=== PATIENT | male | born 1955 | race Caucasian/White ===

== ENCOUNTER 2018-10-16 15:52 | Inpatient (IN) | payer MEDICARE ==
[~2018-10-16 15:52] MED LIST: ISOVUE-370 76%-LOCM 1 ML ONE
[2018-10-16] MEDS ORDERED: methylPREDNISolone Sod Succ/PF 125 MG/2 ML VIAL ONE (16:15)
[2018-10-16 16:16] LABS: #Eosinphils 0.1 thou/uL (0.0-0.7); #Lymphocytes 0.9 thou/uL (1.20-3.40); #Monocytes 0.7 thou/uL (0.11-0.59); #Neutrophils 7.8 thou/uL (1.40-6.50); %Basophils 0.2 % (0.0-1.0); %Eosinophils 1.2 % (0.0-10.0); %Monocytes 6.9 % (0.0-10.0); %Neutrophils 82.7 % (42.0-75.0); Hemoglobin 14.5 g/dL (14.0-18.0); Mean Corpuscular Hemoglobin 30.5 pg (27.0-31.0); Mean Corpuscular Volume 92.6 fL (78.0-98.0); Mean Platelet Volume 8.5 fL (7.4-10.4); Platelet Count 155 thou/uL (130-400); RBC Distribution Width 13.1 % (11.5-14.5); Red Blood Cell (RBC) Count 4.77 mill/uL (4.70-6.10); White Blood Cell (WBC) Count 9.4 thou/uL (4.8-10.8)
--- NOTE | 2018-10-16 16:23 | RAD ---
CHEST ONE VIEW 10/16/18 INDICATION: History of chest pain. COPD. COMPARISON: Prior exam dated 11/27/17. FINDINGS: Stable severe COPD. No consolidation is evident. Stable mild blunting of the lateral costophrenic ang le. No pneumothorax is evident. No acute osseous abnormality is noted. IMPRESSION: Stable severe COPD. No acute cardiopulmonary abnormality. POS: DONNA
[2018-10-16 16:34] LABS: ALT (SGPT) 19 U/L (8-55); AST (SGOT) 18 U/L (5-34); Alkaline Phosphatase 130 U/L (40-150); Anion Gap 13 mmol/L (10-20); BUN (Urea Nitrogen) 13 mg/dL (8.4-25.7); Bilirubin, Total 0.2 mg/dL (0.2-1.2); Calc. Creatinine Clearance 0 mL/min (70-130); Calcium 9.5 mg/dL (7.8-10.44); Carbon Dioxide 24 mmol/L (22-29); Chloride 105 mmol/L (98-107); Estimated GFR-MDRD 85; Globulin 3.1 g/dL (2.4-3.5); Glucose 109 mg/dL (70-105); Magnesium 2.2 mg/dL (1.6-2.6); Potassium 4.5 mmol/L (3.5-5.1); Protein, Total 7.1 g/dL (6.0-8.3); Sodium 137 mmol/L (136-145)
[2018-10-16 16:46] LABS: Analyzer IN Cardio ER; Base Excess (BEa) -0.6 mEq/L (-2.0 to +3.0); CO2 Tension 44.6 mmHg (35.0-45.0); Calcium, Ionized 1.22 mmol/L (1.12-1.30); Hemoglobin (Hb) 14.4 g/dL (14.0-18.0); O2 Tension (PaO2) 84.2 mmHg (> 80.0); Potassium - ABG Lab 4.25 mmol/L (3.70-5.30); pH, Arterial 7.37 (7.35-7.45)
[2018-10-16] MEDS ORDERED: Azithromycin 500 MG VIAL ONE (17:37)
[2018-10-16] MEDS ORDERED: cefTRIAXone\\ROCEPHIN 1 GM VIAL ONE (17:37)
--- NOTE | 2018-10-16 17:49 | CT ---
CTA OF THE THORAX WITH IV CONTRAST AND 3D REFORMATTED IMAGING 10/16/18 COMPARISON: None. FINDINGS: There is severe emphysema. No central or segmental pulmonary embolus is evident. There is some reticulonodular opacities within the left lower lobe on image 111, series 3. There is s ubsegmental volume loss involving both bases adjacent to fat containing Bochdalek hernias. No conflue nt air space opacity, pleural effusion or pneumothorax is evident. There is enlargement of the pulmonary arterial tree. There is aneurysmal dilatation to descending thoracic aorta up to 3.3 cm. There is partial visualization of an infrarenal abdominal aortic aneurysm measuring 6 cm. There is scattered degenerative change. No definite acute osseous abnormality is evident. IMPRESSION: 1. No central or segmental pulmonary embolus. 2. Area of focal reticulonodularity within the anterior lateral segment of the left lower lobe c an be seen with a bronchiolitis. Recommend short term followup in 6 to 8 weeks to document resolution . This can be performed without contrast. 3. Infrarenal abdominal aortic aneurysm measuring 6 cm. Descending thoracic aortic aneurysm oz uring 3.3 cm. Findings were called to Dr. Shaw at 5:26 p.m. on 10/16/18. Vascular surgical followup with a follow up CTA of the abdomen and pelvis is recommended. This was discussed with Dr. Shaw. 4. Severe COPD with enlargement of pulmonary arterial tree likely related to secondary pulmonary arterial hypertension. POS: MARÍA ELENA
[2018-10-16] MEDS ORDERED: Acetaminophen 650 MG Suppository PR PRN (18:04)
[2018-10-16] MEDS ORDERED: Bisacodyl 5 MG TAB PO PRN (18:04)
[2018-10-16] MEDS ORDERED: Acetaminophen 325 MG TAB PO PRN (18:04)
--- NOTE | 2018-10-16 18:37 | HP ---
PRIMARY CARE PROVIDER: Dr. Ricardo Bocanegra. CHIEF COMPLAINT: Shortness of breath. HISTORY OF PRESENT ILLNESS: Mr. Rao is a pleasant 62-year-old gentleman, who was seen at [facility] on October 16, 2018. He is accompanied by his in the emergency room. They report that approximately a year ago, they were seen at another emergency room, and he was told that he has COPD. He reports that he was doing well until a month ago. One month ago, he started having shortness of breath. He reports that the shortness of breath is worse with exertion. He denies orthopnea. He reports diaphoresis, accompanying shortness of breath. He denies any chest pain. He denies any nausea or vomiting. He is unsure if he had any fevers. He also reports cough over the last 3 weeks. The cough is productive of sputum. Sputum was initially whitish, but is now yellow. He reports generalized weakness. REVIEW OF SYSTEMS: All other systems reviewed and found to be negative. PAST MEDICAL HISTORY: Dyslipidemia, hypertension, and COPD. PAST SURGICAL HISTORY: Tonsillectomy. PSYCHIATRIC HISTORY: Bipolar disorder and schizophrenia. SOCIAL HISTORY: The patient smokes one pack of cigarettes a day. He used to smoke more, but has decreased his cigarette use. He reports occasional alcohol use. He denies any recreational drug use. FAMILY HISTORY: Lung cancer in paternal grandfather and myocardial infarction in his father. CODE STATUS: I discussed his code status. He is full code. ALLERGIES: NO KNOWN DRUG ALLERGIES. CURRENT MEDICATIONS: 1. Budesonide inhalation as needed. 2. Pratt carbonate 600 mg 2 times a day. 3. Benazepril 20 mg daily. 4. Nifedipine 30 mg daily. 5. Pravastatin 20 mg at bedtime. 6. Sertraline 75 mg daily. PHYSICAL EXAMINATION: GENERAL: On examination, Mr. Rao is awake and alert, not in acute distress. VITAL SIGNS: Blood pressure is 175/95, pulse 76, respiratory rate 20, and oxygen saturation 96% on 2 L of oxygen. He is afebrile. His room air oxygen saturation was 84%. EYES: No scleral icterus. No conjunctival pallor. ENT: Moist mucosal membranes. No oropharyngeal erythema or exudates. NECK: Supple, nontender. Trachea is midline. RESPIRATORY: Accessory muscles of breathing are active. Chest wall movements are symmetric bilaterally. He has markedly diminished breath sounds at both bases. CARDIOVASCULAR: S1 and S2 are heard, regular. Peripheral pulses palpable. No carotid bruit. No pericardial rub. ABDOMEN: Soft, nontender, bowel sounds heard, no hepatomegaly, no splenomegaly. NEUROLOGIC: Cranial nerves 2 through 12 intact, deep tendon reflexes 2+. MUSCULOSKELETAL: Power is 5/5 in all four extremities. SKIN: No rashes or subcutaneous nodules. LYMPHATIC: No cervical lymphadenopathy. PSYCHIATRIC: Normal mood, normal affect, the patient is oriented to person, place, and time. LABORATORY DATA: Mr. Camargos labs and investigations were reviewed. I reviewed his electrocardiogram, which shows normal sinus rhythm, no ST changes to suggest an acute coronary syndrome. I also reviewed his chest x-ray, which shows hyperinflated lungs, no pulmonary infiltrates. He also had CT angiogram of the chest. The official report is pending. Emergency room physician reports that there is no evidence of pulmonary embolism, but patient has a 6 cm ascending aortic aneurysm. He has an unremarkable CBC, elevated D-dimer of 1.66. Arterial blood gases showing pH 7.37, pCO2 44.6, and PO2 84. Comprehensive metabolic profile is unremarkable. BNP is mildly elevated at 225. Troponin I is normal. ASSESSMENT AND PLAN: Mr. Rao is a pleasant 62-year-old gentleman, who was seen at [facility] on October 16, 2018. His problem list includes: 1. Acute hypoxic respiratory failure: Mr. Rao is presenting with acute hypoxic respiratory failure, most likely secondary to chronic obstructive pulmonary disease exacerbation. He will be admitted to the hospital for further management. 2. Chronic obstructive pulmonary disease exacerbation: The patient will be treated with oxygen, steroids, bronchodilators, and antibiotics. We will follow clinical response. 3. Aortic aneurysm: Emergency room physician has discussed this case with cardiovascular surgeon on-call. Cardiovascular Surgery has been consulted for opinion and help with management. 4. Tobacco abuse: The patient has been counseled regarding tobacco cessation. We will start him on nicotine replacement therapy. 5. Dyslipidemia: Continue statin. 6. Anxiety and bipolar disorder: Continue home medications. 7. Hypertension: Continue benazepril, monitor vital signs, and titrate antihypertensives as needed. Many thanks for allowing me to participate in your patient's care. Please feel free to contact me with any questions or concerns. LEVEL OF RISK: High. LEVEL OF COMPLEXITY: High. Job ID: [id number]
[2018-10-16 20:00] LABS: Troponin I Less than 0.010 ng/mL (< 0.028)
[2018-10-16 21:04] VITALS: BMI 21.4
[2018-10-16] MEDS: Nicotine 21 MG PATCH TD SCH (22:06)
[2018-10-16 23:06] LABS: Troponin I Less than 0.010 ng/mL (< 0.028)
[2018-10-17] MEDS: methylPREDNISolone Sod Succ 40 MG VIAL IVP SCH ×4 (00:22→18:01)
[2018-10-17 06:38] LABS: #Lymphocytes 0.3 thou/uL (1.20-3.40); #Monocytes 0.1 thou/uL (0.11-0.59); #Neutrophils 4.1 thou/uL (1.40-6.50); %Basophils 0.4 % (0.0-1.0); %Eosinophils 0.3 % (0.0-10.0); %Lymphocytes 5.7 % (21.0-51.0); %Monocytes 1.7 % (0.0-10.0); Hemoglobin 14.2 g/dL (14.0-18.0); Mean Corpuscular HGB CONC 30.9 g/dL (32.0-36.0); Mean Corpuscular Hemoglobin 29.8 pg (27.0-31.0); Mean Corpuscular Volume 96.4 fL (78.0-98.0); Mean Platelet Volume 9.3 fL (7.4-10.4); Platelet Count 134 thou/uL (130-400); RBC Distribution Width 13.3 % (11.5-14.5); Red Blood Cell (RBC) Count 4.76 mill/uL (4.70-6.10); White Blood Cell (WBC) Count 4.4 thou/uL (4.8-10.8)
[2018-10-17 06:55] LABS: Anion Gap 13 mmol/L (10-20); BUN (Urea Nitrogen) 13 mg/dL (8.4-25.7); Calc. Creatinine Clearance 94 mL/min (70-130); Calcium 9.8 mg/dL (7.8-10.44); Carbon Dioxide 25 mmol/L (22-29); Chloride 104 mmol/L (98-107); Estimated GFR-MDRD Greater than 90; Glucose 233 mg/dL (70-105); Potassium 4.5 mmol/L (3.5-5.1); Sodium 137 mmol/L (136-145)
--- NOTE | 2018-10-17 08:03 | CT ---
LIMITED CTA THORAX WITH CONTRAST WITH 3D VOLUME RENDERING CTA ABDOMEN AND PELVIS WITH COTNRAST WITH 3D VOLUME RENDERING CTA OF BILATERAL LOWER EXTREMITIES WITH CONTRAST WITH 3D VOLUME RENDERING CTA RUNOFF EXAM INCLUDING BILATERAL LOWER EXTREMITIES: FINDINGS: The imaged mid to distal descending thoracic aorta demonstrates multifocal prominent atherosclerotic disease including calcified plaque with aneurysmal dilatation of 4 cm. There is a large, long-segmen t fusiform infrarenal abdominal aortic aneurysm measuring up to 6 cm in diameter with prominent ather omatous plaque. This spans the region from the level just below the takeoff of the renal arteries to the aortic bifurcation, approximately 12 cm in craniocaudal length. The origin of the celiac axis r eveals mild plaque as does the origin of the superior mesenteric artery. The origin of the left re nal artery demonstrates a mild stenosis due to noncalcified plaque. Mild plaque without significant stenosis is seen involving the right renal artery. Mild disease is seen at the origin of the small-c aliber inferior mesenteric artery. There is aneurysmal dilatation of the right common iliac artery a t 1.9 cm. There is ectasia of the left common iliac artery. Diffuse atherosclerotic calcification t hroughout each iliac artery is present. There are moderately diseased bilateral internal iliac arter ies. Mild scattered calcified plaque is seen within each external iliac artery. RIGHT LOWER EXTREMITY: There is mild atherosclerotic plaque of the right common femoral artery and proximal right superficia l femoral artery. Mild atherosclerotic irregularity is present involving the mid to distal right sup erficial femoral artery. Popliteal artery is patent. There is 3-vessel runoff of the right lower ex tremity to the level of the high ankle. LEFT LOWER EXTREMITY: The left common femoral and proximal left superficial femoral artery demonstrate mild calcified and n oncalcified atherosclerotic plaque. The left SFA is otherwise grossly patent. Mild atherosclerotic disease of the left popliteal artery is present. There is 3-vessel runoff to the level of the left a nkle. Incidental note of pulmonary emphysema. There is a diminutive, devascularized-appearing portion of t he anterior left kidney at the inferior aspect, likely a region of scr. There is a small probable cy st of the lower pole left kidney, although too small to definitively characterize. There is diffuse fecal material throughout the colon with moderate distention indicative of constipation. Scattered o sseous degenerative changes are present. IMPRESSION: 1. Extensive aneurysmal dilatation of the abdominal aorta as discussed above. Mild multifocal bilat eral lower extremity vascular disease is present. 2. Mild aneurysmal dilatation of the descending thoracic aorta. POS: NWK
[2018-10-17] MEDS: Enoxaparin Sodium 40 MG/0.4 ML SYRINGE SC SCH (08:50)
[2018-10-17] MEDS ORDERED: Budesonide 0.5 MG/2 ML NEB NEB SCH (11:30)
--- NOTE | 2018-10-17 12:45 | PDOC.PN ---
- Subjective Encounter Start Date: 10/17/18 Encounter Start Time: 07:40 Pt seen for followup re: acute hypoxic respiratory failure. Says he feels better. - Objective Resuscitation Status - Order Detail: 10/16/18 18:04 Resuscitation Status Routine Resuscitation Status: FULL: Full Resuscitation Discussed with: PATIENT JOAQUÍN Reviewed: Yes Vital Signs & Weight: Vital Signs (12 hours) Temp Pulse Resp BP BP Pulse Ox 10/17/18 11:20 97.5 F L 61 20 159/78 H 94 L 10/17/18 08:50 98 10/17/18 07:20 97.5 F L 52 L 17 136/72 98 10/17/18 07:03 53 L 16 99 10/17/18 04:24 97.4 F L 57 L 20 153/82 H 100 10/17/18 00:48 59 L 14 96 Weight Weight 145 lb 9.6 oz I&O: 10/16/18 10/17/18 10/18/18 05:59 06:59 06:59 Intake Total Output Total Balance Result Diagrams: 10/17/18 05:06 10/17/18 05:06 EKG Reviewed by me: Yes (Tele: NSR) Phys Exam - Physical Examination Constitutional: NAD HEENT: moist MMs, sclera anicteric, oral pharynx no lesions, 2+ tonsils Neck: no nodes, no JVD, supple, full ROM Respiratory: wheezing present Cardiovascular: RRR, no rub S1, S2 Gastrointestinal: soft, non-tender, no distention, positive bowel sounds Neurological: moves all 4 limbs Psychiatric: normal affect Dx/Plan (1) Acute respiratory failure with hypoxia Code(s): J96.01 - ACUTE RESPIRATORY FAILURE WITH HYPOXIA Status: Acute Comment: Improving, secondary to COPD exacerbation (2) COPD exacerbation Code(s): J44.1 - CHRONIC OBSTRUCTIVE PULMONARY DISEASE W (ACUTE) EXACERBATION Status: Acute Comment: Improving with oxygen, steroids, bronchodilators and antibiotics (3) Aortic aneurysm Code(s): I71.9 - AORTIC ANEURYSM OF UNSPECIFIED SITE, WITHOUT RUPTURE Status: Acute Comment: CV surgery consulted (4) Hyperglycemia Code(s): R73.9 - HYPERGLYCEMIA, UNSPECIFIED Status: Acute Comment: check HbA1c level (5) Tobacco abuse Code(s): Z72.0 - TOBACCO USE Status: Chronic Comment: continue nicotine replacement therapy (6) Dyslipidemia Code(s): E78.5 - HYPERLIPIDEMIA, UNSPECIFIED Status: Chronic Comment: continue statin (7) HTN (hypertension) Code(s): I10 - ESSENTIAL (PRIMARY) HYPERTENSION Status: Chronic Comment: monitor vital signs, titrate antihypertensives as needed - Plan * . Review of Systems - Review of Systems Constitutional: negative: fever, chills, sweats, weakness, malaise Respiratory: Cough, SOB with Excertion, Sputum. negative: Dry, Shortness of Breath, Hemoptysis, Pleuritic Pain, Wheezing Cardiovascular: negative: chest pain, palpitations, orthopnea, paroxysmal nocturnal dyspnea, edema, light headedness Gastrointestinal: negative: Nausea, Vomiting, Abdominal Pain, Diarrhea, Constipation, Melena, Hematochezia Genitourinary: negative: Dysuria, Frequency, Incontinence, Hematuria, Retention Skin: negative: Rash, Lesions, Rohit, Bruising - Medications/Allergies Allergies/Adverse Reactions: Allergies Allergy/AdvReac Type Severity Reaction Status Date / Time No Known Drug Allergies Allergy Verified 10/16/18 21:05 Medications: Current Medications Acetaminophen (Tylenol) 650 mg PO Q4H PRN PRN Reason: Headache/Fever/Mild Pain (1-3) Acetaminophen (Tylenol) 650 mg LA Q4H PRN PRN Reason: Headache/Fever/Mild Pain (1-3) Albuterol/Ipratropium (Duoneb) 3 ml NEB [id number] [facility] Last Admin: 10/17/18 07:03 Dose: 3 ml Albuterol/Ipratropium (Duoneb) 3 ml NEB [id number] PRN PRN Reason: SOB &/or Wheezing Bisacodyl (Dulcolax) 10 mg PO DAILYPRN PRN PRN Reason: Constipation Budesonide (Pulmicort Neb Solution) 0.5 mg NEB BID-RT [facility] Enoxaparin Sodium (Lovenox) 40 mg SC 0900 [facility] Last Admin: 10/17/18 08:50 Dose: 40 mg Azithromycin 500 mg/ Sodium (Chloride) 250 mls @ 250 mls/hr IVPB Q24HR [facility] Ceftriaxone Sodium 1 gm/ (Sodium Chloride) 100 mls @ 200 mls/hr IVPB Q24HR [facility] Allardt Carbonate (Allardt Carbonate) 600 mg PO BID [facility] Methylprednisolone Sodium Succinate (Solu-Medrol) 40 mg IVP Q6HR [facility] Last Admin: 10/17/18 11:27 Dose: 40 mg Nicotine (Nicoderm Patch) 21 mg TD Q24HR [facility] Last Admin: 10/16/18 22:06 Dose: Not Given Nifedipine (Procardia Xl) 30 mg PO DAILY LÓPEZ Sertraline HCl (Zoloft) 75 mg PO DAILY LÓPEZ Simvastatin (Zocor) 10 mg PO HS [facility] Sodium Chloride (Flush - Normal Saline) 10 ml IVF Q12HR [facility] Last Admin: 10/17/18 08:50 Dose: 10 ml Sodium Chloride (Flush - Normal Saline) 10 ml IVF PRN PRN PRN Reason: Saline Flush Last Admin: 10/17/18 05:58 Dose: 10 ml
[2018-10-17 15:33] LABS: Hemoglobin A1c 5.2 % (4.0-6.0)
[2018-10-17] MEDS ORDERED: cefTRIAXone\\ROCEPHIN 1 GM in Sodium Chloride 0.9% 100 ML IVPB SCH (17:00)
[2018-10-17] MEDS ORDERED: Azithromycin 500 MG in Sodium Chloride 0.9% 250 ML 250 ML IVPB SCH (18:00)
[2018-10-17] MEDS: Budesonide 0.5 MG/2 ML NEB NEB SCH (19:11)
[2018-10-17] MEDS: Simvastatin 5 MG TAB PO SCH (19:53)
[2018-10-17] MEDS: Lithium Carbonate 150 MG CAP PO SCH (19:53)
[2018-10-17] MEDS: Nicotine 21 MG PATCH TD SCH ×2 (19:53→19:55)
--- NOTE | 2018-10-17 21:58 | CON ---
DATE OF CONSULTATION: 10/17/2018 PRIMARY CARE PHYSICIAN: Dr. Ricardo Bocanegra. CHIEF COMPLAINT: Shortness of breath. HISTORY OF PRESENT ILLNESS: The patient is a 62-year-old smoker who over the last month or two at home has been having problems with what he describes as recurrent bronchitis. He will develop a productive cough and shortness of breath, will clear up on antibiotics, and then will recur soon after completing his course of antibiotics. He has had problems with wheezing associated with this. His current episode has involved cough, productive of whitish sputum for about 3 weeks and his breathing got bad enough that he decided to present to the emergency room. His chest x-ray had obvious COPD without obvious focal infiltrate. A CT scan of the chest was done as part of his evaluation and I was contacted by the emergency room physician, who reported the CT had shown about a 6-cm aortic aneurysm at about the level of the diaphragmatic hiatus. The patient had no abdominal or back pain and no radiographic findings suggestive of hemorrhage or surrounding edema. The patient was admitted to the hospitalist service for treatment of his presumed COPD exacerbation and I was asked to see the patient with regard to the incidental finding of his aneurysm. The patient denies any known history of aneurysm, but has siblings with aneurysms. PAST MEDICAL HISTORY: Significant for what is described as a combination of schizophrenia and bipolar disorder, hypertension, and COPD. MEDICATIONS: 1. Zoloft, an unknown dose. 2. Langlois carbonate 600 mg b.i.d. 3. Nifedipine ER 30 mg a day. 4. Budesonide nebulizer b.i.d. ALLERGIES: THE PATIENT DENIES ANY MEDICAL ALLERGIES. SOCIAL HISTORY: The patient has a long history of heavy smoking as much as 4-5 packs of cigarettes a day over the last year, so he has cut down to about one pack of cigarettes a day, but has started vaping during that time. FAMILY HISTORY: Significant for two siblings with aneurysms. His father had coronary disease. REVIEW OF SYSTEMS: Negative for any eye, speech, facial, or extremity symptoms consistent with TIAs. He has a very remote history of a syncopal episode. He denies any lower extremity symptoms consistent with claudication. He denies any delusions or suicidal ideation, but does admit to some recent depression. PHYSICAL EXAMINATION: GENERAL: He is in no distress, but does have a bit of a rattling sound to his breathing. VITAL SIGNS: He is 5 feet 9 inches, weighs 145.5 pounds, heart rate is 61, blood pressure 159/78, room air O2 saturations are 94% to 98%, temperature is 97.5, and T-max this hospitalization has been 98.2. NECK: He has no JVD. No carotid bruits. He has distant breath sounds with some right-sided wheezes. He has a regular rate and rhythm. ABDOMEN: Soft and nontender. He has palpable radial, femoral, popliteal, dorsalis pedis, and posterior tibial pulses. He has no femoral bruits. Femoral and popliteal pulses are of normal prominence. He has no clubbing, cyanosis, or edema. Level of consciousness and affect appear normal. NEUROLOGIC: Grossly nonfocal. IMAGING: His chest x-ray shows hyperexpanded lung aldana with very prominent vascular and pleural markings and flattened diaphragms or cephalization of the vasculature, no obvious aortic knob calcification or particular ectasia. Cardiac silhouette is normal. His chest CT showed prominent pulmonary vasculature with diffuse emphysematous disease, worse in the upper lobes. The lower cuts of his scan showed prominence to the juxtarenal aorta. Dedicated CTA of his aorta showed about a 6-cm juxtarenal aneurysm. It approaches the superior mesenteric artery. It appears to probably involve the renals. Axial cuts of the AP diameter appears to be about 6 cm. On sagittal, it appears to be about 5.5. Coronal of the transverse, appears to be about 5.5. There is also about a 2-cm dilatation of the right common iliac artery. IMPRESSION AND RECOMMENDATIONS: The patient's lung disease is bad enough that endovascular repair certainly an appealing option, but I am not sure that proximity of the renal vasculature to the aneurysm or for that matter the SMA will easily allow for that. If his cardiopulmonary status was to allow, this is surgically accessible in a fairly routine manner. His body habitus is such that I do not think that a juxtarenal aneurysm repair would be of inordinate difficulty. The 1st order of business is to get him over his current exacerbation of chronic obstructive pulmonary disease and then do a more systematic approach toward evaluating his cardiopulmonary status as well as analysis of the anatomy to evaluate him for candidacy of stent graft repair from a purely technical standpoint. Job ID: [id number]
[2018-10-18] MEDS: methylPREDNISolone Sod Succ 40 MG VIAL IVP SCH ×3 (00:41→12:33)
[2018-10-18 05:54] LABS: #Basophils 0.1 thou/uL (0.0-0.2); #Lymphocytes 0.5 thou/uL (1.20-3.40); #Monocytes 0.4 thou/uL (0.11-0.59); #Neutrophils 10.6 thou/uL (1.40-6.50); %Basophils 0.6 % (0.0-1.0); %Eosinophils 0.1 % (0.0-10.0); %Lymphocytes 4.2 % (21.0-51.0); %Monocytes 3.1 % (0.0-10.0); Hemoglobin 13.3 g/dL (14.0-18.0); Mean Corpuscular HGB CONC 30.5 g/dL (32.0-36.0); Mean Corpuscular Hemoglobin 29.4 pg (27.0-31.0); Mean Corpuscular Volume 96.4 fL (78.0-98.0); Mean Platelet Volume 8.2 fL (7.4-10.4); Platelet Count 165 thou/uL (130-400); RBC Distribution Width 13.3 % (11.5-14.5); Red Blood Cell (RBC) Count 4.54 mill/uL (4.70-6.10); White Blood Cell (WBC) Count 11.5 thou/uL (4.8-10.8)
[2018-10-18 06:17] LABS: Anion Gap 12 mmol/L (10-20); BUN (Urea Nitrogen) 14 mg/dL (8.4-25.7); Calc. Creatinine Clearance 91 mL/min (70-130); Calcium 9.7 mg/dL (7.8-10.44); Carbon Dioxide 26 mmol/L (22-29); Chloride 105 mmol/L (98-107); Estimated GFR-MDRD Greater than 90; Glucose 144 mg/dL (70-105); Potassium 4.4 mmol/L (3.5-5.1); Sodium 139 mmol/L (136-145)
[2018-10-18] MEDS: Budesonide 0.5 MG/2 ML NEB NEB SCH ×2 (06:27→19:00)
[2018-10-18] MEDS: Lithium Carbonate 150 MG CAP PO SCH ×2 (09:22→20:38)
[2018-10-18] MEDS: NIFEdipine XL 30 MG TAB PO SCH (09:23)
[2018-10-18] MEDS: Enoxaparin Sodium 40 MG/0.4 ML SYRINGE SC SCH (09:23)
--- NOTE | 2018-10-18 09:23 | PDOC.PN ---
- Subjective Encounter Start Date: 10/18/18 Encounter Start Time: 11:20 Subjective: Patient reports improved SOB and cough. Ok off O2 while at rest -: currently. Gets very SOB with ambulation. - Objective Resuscitation Status - Order Detail: 10/16/18 18:04 Resuscitation Status Routine Resuscitation Status: FULL: Full Resuscitation Discussed with: PATIENT JOAQUÍN Reviewed: Yes Vital Signs & Weight: Vital Signs (12 hours) Temp Pulse Resp BP BP Pulse Ox 10/18/18 07:32 98.0 F 78 18 127/72 93 L 10/18/18 06:28 97 10/18/18 06:27 76 18 97 10/18/18 05:00 97.5 F L 65 20 138/67 96 10/18/18 00:34 78 16 98 Weight Weight 145 lb 9.6 oz I&O: 10/17/18 10/18/18 10/19/18 06:59 06:59 06:59 Intake Total 1950 Output Total 2350 Balance -400 Result Diagrams: 10/18/18 05:31 10/18/18 05:31 Phys Exam - Physical Examination Constitutional: NAD HEENT: moist MMs Respiratory: no wheezing, no rales, no rhonchi mild decreased air movement, no increase WOB currently Cardiovascular: RRR, no significant murmur Gastrointestinal: soft Musculoskeletal: no edema Neurological: non-focal, moves all 4 limbs very shakey, states he was worse at home, especially since he was drinking tons of caffeine. No hx of heavy or regular EtOH use. Does smoke alot. Psychiatric: A&O x 3 Deviation from normal: a bit anxious Dx/Plan (1) Acute respiratory failure with hypoxia Code(s): J96.01 - ACUTE RESPIRATORY FAILURE WITH HYPOXIA Status: Acute Comment: Improving, secondary to COPD exacerbation, on RA on and off this morning (2) COPD exacerbation Code(s): J44.1 - CHRONIC OBSTRUCTIVE PULMONARY DISEASE W (ACUTE) EXACERBATION Status: Acute Comment: Improving with oxygen, steroids, bronchodilators and antibiotics (3) Aortic aneurysm Code(s): I71.9 - AORTIC ANEURYSM OF UNSPECIFIED SITE, WITHOUT RUPTURE Status: Acute Comment: CV surgery consulted, will need repair after COPD exacerbation resolved (4) Hyperglycemia Code(s): R73.9 - HYPERGLYCEMIA, UNSPECIFIED Status: Acute Comment: due to steroids, HbA1c normal (5) Dyslipidemia Code(s): E78.5 - HYPERLIPIDEMIA, UNSPECIFIED Status: Chronic Comment: continue statin (6) HTN (hypertension) Code(s): I10 - ESSENTIAL (PRIMARY) HYPERTENSION Status: Chronic Comment: monitor vital signs, titrate antihypertensives as needed (7) Tobacco abuse Code(s): Z72.0 - TOBACCO USE Status: Chronic Comment: continue nicotine replacement therapy - Plan cont current plan of care, continue antibiotics, respiratory therapy, DVT proph w/lovenox Will consult pulmonolgy- Dr. Kim. Patient will need to continue -: following outpatient. Today can transition to oral abx and steroids. -: Per Dr. Baugh patient will likely need O/P referral to center for -: high risk advanced endovascular AAA repair due to COPD * . - Discharge Day Encounter end time: 11:30
--- NOTE | 2018-10-18 17:07 | CON ---
DATE OF CONSULTATION: HISTORY OF PRESENT ILLNESS: Travis Rao is a 62-year-old male. I was consulted because of COPD. He presented with shortness of breath. He does not have a doctor that he has seen for this in the past, although, he has been hospitalized in the past. He has been treated for COPD exacerbation this admission and is clinically improved. He feels like he is ready to go home. He lives in [place], has a nebulizer at home. He has had an echocardiogram done this admission that shows a normal ejection fraction, but diastolic dysfunction. He has also been found to have an aortic aneurysm. I was consulted for followup as an outpatient. He has been a smoker up until this admission. PAST MEDICAL HISTORY: Otherwise remarkable for hypertension and lipid disorder. Reportedly, he has a history of bipolar disorder and schizophrenia. He is a pack-a-day smoker. He started using vapor cigarette lately. He does not drink every day. FAMILY HISTORY: He has family history of lung cancer. ALLERGIES: HE HAS NO REPORTED DRUG ALLERGIES. MEDICATIONS: Prior to admission, he is on: 1. [place]. 2. Benazepril. 3. Nifedipine. 4. Pravastatin. 5. Zoloft. 6. Budesonide. PHYSICAL EXAMINATION: GENERAL: He is a pleasant gentleman, in no distress. VITAL SIGNS: He is afebrile. Heart rate 78, respiratory rate 18, oximetry is 96% on room air, and blood pressure 149/65. HEENT: Pupils are equal. Sclerae are anicteric. NECK: Supple. No lymphadenopathy. LUNGS: Clear. HEART: Regular rhythm. S1 and S2 are normal. ABDOMEN: Soft and nontender. EXTREMITIES: Without clubbing, cyanosis, or edema. NEUROLOGIC: Grossly nonfocal. IMPRESSION: Chronic obstructive pulmonary disease with recent exacerbation, probably is improved to where near his baseline. It is reasonable to do spirometry on him to help quantitate risk. I reviewed his CT, I do not feel he has pneumonia. I am happy to see him as an outpatient 2 to 3 weeks after discharge. TIME SPENT WITH PATIENT: This is a 50-minute consult, 50% of the time spent on the unit coordinating care. Job ID: [id number]
[2018-10-18] MEDS: Cefdinir 300 MG CAP PO SCH (20:38)
[2018-10-18] MEDS: Simvastatin 5 MG TAB PO SCH (20:38)
[2018-10-18] MEDS: Nicotine 21 MG PATCH TD SCH (20:40)
[2018-10-19 05:22] LABS: #Basophils 0.1 thou/uL (0.0-0.2); #Lymphocytes 1.8 thou/uL (1.20-3.40); #Monocytes 0.8 thou/uL (0.11-0.59); #Neutrophils 10.1 thou/uL (1.40-6.50); %Basophils 0.5 % (0.0-1.0); %Eosinophils 0.3 % (0.0-10.0); %Lymphocytes 13.8 % (21.0-51.0); %Monocytes 5.9 % (0.0-10.0); %Neutrophils 79.5 % (42.0-75.0); Hemoglobin 14.8 g/dL (14.0-18.0); Mean Corpuscular HGB CONC 31.2 g/dL (32.0-36.0); Mean Corpuscular Hemoglobin 29.4 pg (27.0-31.0); Mean Corpuscular Volume 94.2 fL (78.0-98.0); Mean Platelet Volume 8.1 fL (7.4-10.4); Platelet Count 188 thou/uL (130-400); RBC Distribution Width 13.6 % (11.5-14.5); Red Blood Cell (RBC) Count 5.04 mill/uL (4.70-6.10); White Blood Cell (WBC) Count 12.7 thou/uL (4.8-10.8)
[2018-10-19 05:45] LABS: Anion Gap 11 mmol/L (10-20); BUN (Urea Nitrogen) 20 mg/dL (8.4-25.7); Calc. Creatinine Clearance 80 mL/min (70-130); Calcium 10.2 mg/dL (7.8-10.44); Carbon Dioxide 31 mmol/L (22-29); Chloride 101 mmol/L (98-107); Estimated GFR-MDRD 84; Glucose 86 mg/dL (70-105); Potassium 4.6 mmol/L (3.5-5.1); Sodium 138 mmol/L (136-145)
[2018-10-19] MEDS: Budesonide 0.5 MG/2 ML NEB NEB SCH (06:47)
[2018-10-19 08:00] VITALS: TEMP 98.2
[2018-10-19] MEDS ORDERED: predniSONE 20 MG TAB PO SCH (08:00)
[2018-10-19] MEDS: Cefdinir 300 MG CAP PO SCH (08:51)
[2018-10-19] MEDS: Enoxaparin Sodium 40 MG/0.4 ML SYRINGE SC SCH (08:52)
[2018-10-19] MEDS: NIFEdipine XL 30 MG TAB PO SCH (08:52)
[2018-10-19] MEDS: Lithium Carbonate 150 MG CAP PO SCH (08:53)
[2018-10-19] MEDS ORDERED: Azithromycin 250 MG TAB PO SCH (09:00)
--- NOTE | 2018-10-19 09:11 | PDOC.PN ---
- Subjective Encounter Start Date: 10/19/18 Encounter Start Time: 10:00 Subjective: Patient feeling much better. Able to ambulate very slowly on RA without -: too much SOB. Has nebulizer at home. Feels close to baseline. Ready -: to go home. - Objective Resuscitation Status - Order Detail: 10/16/18 18:04 Resuscitation Status Routine Resuscitation Status: FULL: Full Resuscitation Discussed with: PATIENT MAR Reviewed: Yes Vital Signs & Weight: Vital Signs (12 hours) Temp Pulse Resp BP BP Pulse Ox 10/19/18 07:51 98.2 F 66 18 146/81 H 97 10/19/18 06:47 78 18 92 L 10/19/18 04:59 97.5 F L 76 21 H 141/87 H 92 L 10/19/18 00:33 89 18 92 L Weight Weight 145 lb 9.6 oz I&O: 10/18/18 10/19/18 10/20/18 06:59 06:59 06:59 Intake Total 1950 1360 Output Total 2350 2300 Balance -400 -940 Result Diagrams: 10/19/18 05:08 10/19/18 05:08 Phys Exam - Physical Examination Constitutional: NAD HEENT: moist MMs Respiratory: no wheezing, no rales, no rhonchi decent air movement bilaterally Cardiovascular: RRR, no significant murmur Gastrointestinal: soft, positive bowel sounds Neurological: non-focal, moves all 4 limbs Psychiatric: normal affect, A&O x 3 Dx/Plan (1) Acute respiratory failure with hypoxia Code(s): J96.01 - ACUTE RESPIRATORY FAILURE WITH HYPOXIA Status: Acute Comment: Improving, secondary to COPD exacerbation, on RA on and off this morning (2) COPD exacerbation Code(s): J44.1 - CHRONIC OBSTRUCTIVE PULMONARY DISEASE W (ACUTE) EXACERBATION Status: Acute Comment: Improving with oxygen, steroids, bronchodilators and antibiotics (3) Aortic aneurysm Code(s): I71.9 - AORTIC ANEURYSM OF UNSPECIFIED SITE, WITHOUT RUPTURE Status: Acute Comment: CV surgery consulted, will need repair after COPD exacerbation resolved (4) Hyperglycemia Code(s): R73.9 - HYPERGLYCEMIA, UNSPECIFIED Status: Acute Comment: due to steroids, HbA1c normal (5) Dyslipidemia Code(s): E78.5 - HYPERLIPIDEMIA, UNSPECIFIED Status: Chronic Comment: continue statin (6) HTN (hypertension) Code(s): I10 - ESSENTIAL (PRIMARY) HYPERTENSION Status: Chronic Comment: monitor vital signs, titrate antihypertensives as needed (7) Tobacco abuse Code(s): Z72.0 - TOBACCO USE Status: Chronic Comment: continue nicotine replacement therapy - Plan cont current plan of care, continue antibiotics, respiratory therapy Patient back to baseline. Will d/c. CV surg and Pulm followup in the next -: few weeks. Try to get the PFTs done before discharge. * . - Discharge Day Encounter end time: 10:30
[2018-10-19 12:47] VITALS: BP 149/80
--- NOTE | 2018-10-20 05:03 | DIS ---
DATE OF ADMISSION: 10/16/2018 DATE OF DISCHARGE: 10/19/2018 PRIMARY CARE PHYSICIAN: Ricardo Bocanegra. REASON FOR ADMISSION: COPD exacerbation. DISCHARGE DIAGNOSES: 1. Acute respiratory failure with hypoxia, resolved. 2. Chronic obstructive pulmonary disease exacerbation. 3. 6 cm abdominal aortic aneurysm. 4. Hyperglycemia secondary to steroids. 5. Dyslipidemia. 6. Hypertension. 7. Tobacco abuse. PROCEDURES: 1. CT of the chest and thorax with contrast showing no evidence for pulmonary embolism. A small area of focal reticular nodularity within the anterolateral segment of the left lower lobe, possible bronchiolitis, and then infrarenal abdominal aortic aneurysm measuring 6 cm, descending thoracic aortic aneurysm measuring 3.3 cm. No evidence of rupture. 2. Aortogram with runoff CTA showing extensive aneurysmal dilatation of the abdominal aorta, mild multifocal bilateral lower extremity vascular disease, and mild aneurysmal dilatation of the descending thoracic aorta. 3. Echocardiogram, ejection fraction of 50% to 55%, and diastolic dysfunction. CONSULTATIONS: 1. CT surgery Dr. Baugh. 2. Pulmonology, Dr. Kim. SUMMARY OF HOSPITAL COURSE: This is a 62-year-old white male with a known history of COPD, not on home oxygen, started having 1-month history of shortness of breath and 3 weeks of cough, productive of sputum. He came into the emergency room, was found to be saturating in the low 80s on room air. He was given oxygen nebs, steroids, and antibiotics, and started to improve. He did have an elevated D-dimer. He had a CT of the chest with above results. Dr. Baugh was consulted for the 6 cm abdominal aortic aneurysm. He recommended Pulmonary consultation and outpatient followup to maximize his lung function, concern for his high risk status should he do open aneurysm repair, but the patient's aneurysm is not easily amenable to endovascular repair. As a result, Dr. Baugh thinks the patient will probably need to go to referral center for advanced endovascular repair. The patient improved during hospitalization, was able to be weaned off oxygen, was able to ambulate slowly without too much shortness of breath, and so he is being discharged to home. Of note, on the day of discharge, we are attempting to get pulmonary function testing in preparation for his surgery and is not able to be done today. We will need to be scheduled as an outpatient. DISCHARGE MANAGEMENT: Discharged to home. FOLLOWUP: Follow up with Dr. Kim in 2 to [address] Baugh in 2 to 3 weeks. ACTIVITY: As tolerated. DIET: Healthy heart low-sodium diet. Has a home nebulizer already. DISCHARGE MEDICATIONS: 1. Azithromycin 250 mg daily for one more day for total of five days antibiotics. 2. Cefdinir 300 mg twice a day for another four days for total of seven days of this antibiotic. 3. DuoNeb q.4 hours as needed, 60 nebs dispensed. 4. Prednisone 40 mg daily for another two days for total of five days of steroids. 5. Continue home budesonide 0.5 mg nebs twice a day. 6. [place] carbonate 600 mg twice a day. 7. Nifedipine extended release 30 mg daily. 8. Pravastatin 20 mg daily. 9. Sertraline 75 mg daily. Duration of the details of this discharge took 32 minutes. Job ID: [id number]
== END 2018-10-19 13:06 | disposition home or self-care (01) | DRG 189 ==
LOC: ERS 15:52 → 2NO 20:57
PROVIDERS: ADMIT Internal Medicine; ATTEND Internal Medicine
DX: J96.01 Acute respiratory failure with hypoxia (principal); J44.1 Chronic obstructive pulmonary disease with (acute) exacerbation; E78.5 Hyperlipidemia, unspecified; I10 Essential (primary) hypertension; J44.9 Chronic obstructive pulmonary disease, unspecified; F31.9 Bipolar disorder, unspecified; F20.9 Schizophrenia, unspecified; F17.210 Nicotine dependence, cigarettes, uncomplicated; I71.9 Aortic aneurysm of unspecified site, without rupture; F41.9 Anxiety disorder, unspecified; R73.9 Hyperglycemia, unspecified; Z90.89 Acquired absence of other organs; Z71.6 Tobacco abuse counseling
CPT/HCPCS: 36415; 71045; 71275; 75635; 80048; 80053; 82805; 83036; 83735; 83880; 84484; 85025; 85379; 87040; 87086; 87804; 93005; 93306; 94640; 96365; 96367; 96375; 99406; J0456; J0696; J1650; J2920; J2930; J3490; J7050; J7620; J7626; Q9966

== ENCOUNTER 2018-11-09 10:42 | Outpatient (CLI) | payer MEDICARE ==
--- NOTE | 2018-11-09 11:00 | RAD ---
F2 views chest: 11/09/2018 COMPARISON: 10/16/2018 HISTORY: Shortness of breath FINDINGS: Prominent bullous emphysematous changes are noted with pulmonary hyperinflation consistent with air trapping. These findings are consistent with stable COPD in the proper clinical setting. No pneumothorax, pleural fluid, focal consolidation, or alveolar edema. Heart and mediastinal contours a ppear unremarkable. IMPRESSION: Chronic findings as detailed above.
== END 2018-11-09 10:43 | disposition home or self-care (01) ==
LOC: RAD 10:42
PROVIDERS: ATTEND Internal Medicine Critical Care Medicine
DX: R06.00 Dyspnea, unspecified (principal); J43.9 Emphysema, unspecified; R91.8 Other nonspecific abnormal finding of lung field
CPT/HCPCS: 71046

== ENCOUNTER 2019-03-04 12:08 | Outpatient (CLI) | payer MEDICARE ==
[~2019-03-04 12:08] MED LIST changes: -ISOVUE-370 76%-LOCM 1 ML ONE; +Iopamidol 370 76% 100 ML VIAL ONE
--- NOTE | 2019-03-04 13:32 | CT ---
CT angiogram abdomen and pelvis with IV contrast and 3-D reconstructions 03/04/2019 CLINICAL INFORMATION: Follow-up abdominal aortic aneurysm. COMPARISON: 10/17/2018 FINDINGS: Lower Chest: Emphysematous changes are again seen at each lung base. Vessels: As noted on the prior examination, there is a large fusiform infrarenal abdominal aortic ane urysm which extends from the level of the renal arteries to the distal abdominal aorta. The greatest dimensions of the aneurysm measure 6.3 cm x 5.4 cm with prior greatest measurement of 6.1 cm . There is prominent eccentric plaque/mural thrombus involving the aneurysm. The overall length of the aneurysm measures approximately 13 cm. There is mild atherosclerotic plaque seen involving the proximal SMA with only mild narrowing at the origin. The celiac artery is patent. The ELENA appears occluded. There is mild atherosclerotic plaque and narrowing involving the most proximal aspect of each single renal artery. A 2 cm right common iliac artery aneurysm is noted measuring 2 cm. There is diffuse atherosclerotic p laque and calcification seen in the abdominal aorta as well as involving the iliac arteries. Moderate narrowing is seen involving the origin of the left internal iliac artery with moderate to se gerri narrowing at the origin of the right internal iliac artery. The external iliac arteries are patent bilaterally. Common femoral arteries are also patent. Abdomen: Portal vein:Unopacified due to phase of imaging. Gallbladder: Within normal limits for CT imaging. Liver: Not well opacified due to phase imaging but otherwise grossly normal in appearance for nonenha nced appearance. Spleen: Normal appearance for phase of imaging. Pancreas: within normal limits. Adrenals: within normal limits. Kidneys: Subcentimeter too small to characterize hypodense lesion inferior pole left kidney. Kidneys otherwise have a normal CT appearance. Bowel: Moderate amount of retained fecal material seen throughout the colon. Small bowel loops are no rmal in caliber. Appendix: The appendix is visualized and normal in caliber. Peritoneum: No ascites or free air; no fluid collection. Mesentery and Retroperitoneum: No enlarged mesenteric or retroperitoneal lymph nodes. Abdominal Wall: within normal limits. Pelvis: Reproductive Organs: No pelvic masses. Pelvis within normal limits. Bladder: The urinary bladder is incompletely distended. However, the cardona of the urinary bladder sup eriorly and anteriorly appear to be mildly thickened which is overall nonspecific. No adjacent perivesicular inflammatory changes are identified. Bones: within normal limits. IMPRESSION: 1. Large fusiform juxtarenal abdominal aortic aneurysm with mural plaque/thrombus. Greatest dimension of the aneurysm is 6.3 cm with the largest dimension of the opacified lumen of the aneurysm measuring 4.5 cm. The aneurysm previously measured 6.1 cm in greatest dimension on prior exam. 2. 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 3. Evidence of COPD. 4. Additional findings are as described above
== END 2019-03-04 12:09 | disposition home or self-care (01) ==
LOC: CT 12:08
PROVIDERS: ATTEND Thoracic Surgery (Cardiothoracic Vascular Surgery)
DX: I71.4 Abdominal aortic aneurysm, without rupture (principal); I72.3 Aneurysm of iliac artery; I21.9 Acute myocardial infarction, unspecified; N28.89 Other specified disorders of kidney and ureter; K55.1 Chronic vascular disorders of intestine
CPT/HCPCS: 74174; 82565; Q9967

== ENCOUNTER 2019-07-21 15:30 | Outpatient (CLI) | payer MEDICARE ==
--- NOTE | 2019-07-21 15:49 | RAD ---
CHEST 2 VIEWS: HISTORY: Dyspnea. COMPARISON: 11/09/2018. FINDINGS: Hyperinflation and chronic lung changes noted bilaterally. Increased markings bilaterally, particula rly in the mid lung zones and parahilar regions. Dilatation of the left proximal pulmonary artery se gment, evidence for some pulmonary artery hypertension. No confluent pneumonia, overt edema, or pleu ral effusion. IMPRESSION: No significant acute intrathoracic disease. POS: [facility]
== END 2019-07-21 15:31 | disposition home or self-care (01) ==
LOC: RAD 15:30
PROVIDERS: ATTEND Internal Medicine Critical Care Medicine
DX: R06.00 Dyspnea, unspecified (principal)
CPT/HCPCS: 71046

== ENCOUNTER 2021-03-15 12:49 | Inpatient (IN) | payer MEDICARE ==
[~2021-03-15 12:49] MED LIST changes: -Iopamidol 370 76% 100 ML VIAL ONE; +Iopamidol-370 76% 500 ML 1 ML ONE
[2021-03-15 13:18] LABS: Actual Bicarbonate (HCO3v) 24 mEq/L (22-28); Analyzer IN Cardio ER; Base Excess -5.6 mEq/L (-2.0 to +3.0); Calcium, Ionized (venous) 1.13 mmol/L (1.16-1.32); Chloride (VBG) 103 mmol/L (98-106); Hemoglobin (Hb) 15.1 g/dL (13.1-17.2); Potassium (VBG) 3.77 mmol/L (3.70-5.30)
[2021-03-15 13:20] LABS: pH (venous) 7.17 (7.32-7.43)
[2021-03-15] MEDS ORDERED: cefTRIAXone\\ROCEPHIN 2 GM VIAL ONE (13:32)
[2021-03-15] MEDS ORDERED: Magnesium 2 GM/50 ML BAG (IN WATER) ONE (13:32)
[2021-03-15] MEDS ORDERED: Azithromycin 500 MG VIAL ONE (13:32)
[2021-03-15] MEDS ORDERED: Sodium Chloride 0.9% 100 ML ONE (13:32)
[2021-03-15 13:45] LABS: #Basophils 0.1 thou/uL (0.0-0.2); #Lymphocytes 0.2 thou/uL (1.20-3.40); #Monocytes 0.2 thou/uL (0.11-0.59); #Neutrophils 5.8 thou/uL (1.40-6.50); %Basophils 1.1 % (0.0-1.0); %Lymphocytes 3.8 % (21.0-51.0); %Monocytes 3.5 % (0.0-10.0); %Neutrophils 91.7 % (42.0-75.0); Hemoglobin 14.3 g/dL (14.0-18.0); Mean Corpuscular HGB CONC 32.7 g/dL (32.0-36.0); Mean Corpuscular Hemoglobin 30.7 pg (27.0-31.0); Mean Corpuscular Volume 93.9 fL (78.0-98.0); Mean Platelet Volume 8.7 fL (7.4-10.4); Platelet Count 112 thou/uL (130-400); RBC Distribution Width 14.2 % (11.5-14.5); Red Blood Cell (RBC) Count 4.66 mill/uL (4.70-6.10); White Blood Cell (WBC) Count 6.3 thou/uL (4.8-10.8)
[2021-03-15 13:59] LABS: Platelet Morphology Comment Appears Decreased; RBC Morphology Normal
[2021-03-15 14:29] LABS: SARS-CoV-2 NAA Rapid Test DETECTED (NotDetected)
[2021-03-15 14:54] LABS: ALT (SGPT) 38 U/L (8-55); AST (SGOT) 38 U/L (5-34); Albumin 3.7 g/dL (3.4-4.8); Alkaline Phosphatase 145 U/L (40-110); Anion Gap 16 mmol/L (10-20); BUN (Urea Nitrogen) 45 mg/dL (8.4-25.7); Bilirubin, Total 0.6 mg/dL (0.2-1.2); Calc. Creatinine Clearance 0 mL/min (70-130); Calcium 8.9 mg/dL (7.8-10.44); Carbon Dioxide 24 mmol/L (23-31); Chloride 104 mmol/L (98-107); Glucose 119 mg/dL (80-115); Potassium 3.8 mmol/L (3.5-5.1); Protein, Total 6.7 g/dL (5.8-8.1); Sodium 140 mmol/L (136-145)
[2021-03-15] MEDS ORDERED: Furosemide 20 MG/2 ML VIAL ONE (15:23)
[2021-03-15] MEDS ORDERED: Dexamethasone 10 MG/ML VIAL ONE (15:43)
[2021-03-15 15:52] LABS: INR-International Normal Ratio 0.9; PTT 34.6 sec (22.9-36.1)
[2021-03-15] MEDS ORDERED: Acetaminophen 325 MG TAB PO PRN (15:55)
[2021-03-15] MEDS ORDERED: Calcium Carbonate 500 MG ChewTAB PO PRN (15:55)
[2021-03-15] MEDS ORDERED: Ondansetron ODT 4 MG TAB PO PRN (15:55)
[2021-03-15] MEDS ORDERED: Ondansetron PF 4 MG/2 ML Vial IVP PRN (15:55)
[2021-03-15] MEDS ORDERED: Acetaminophen 325 MG/10.15 ML UDCUP PO PRN (16:02)
[2021-03-15] MEDS ORDERED: Bisacodyl 10 MG SUPP PR PRN (16:02)
[2021-03-15] MEDS ORDERED: Milk Of Magnesia 30 ML UDCUP PO PRN (16:02)
[2021-03-15] MEDS ORDERED: Mag-Al 1200 mg/1200 mg/30 ML UDCUP PO PRN (16:02)
[2021-03-15] MEDS ORDERED: Electrolyte Replacement Protocol 1 EACH IVPB ONE (16:02)
[2021-03-15] MEDS ORDERED: Albuterol 200 PUFF (6.7GM INHALER) INH PRN (16:06)
[2021-03-15 16:10] LABS: Actual Bicarbonate (HCO3v) 24 mEq/L (22-28); Analyzer IN Cardio ER; Base Excess -5.2 mEq/L (-2.0 to +3.0); Calcium, Ionized (venous) 1.14 mmol/L (1.16-1.32); Chloride (VBG) 106 mmol/L (98-106); Hemoglobin (Hb) 14.6 g/dL (13.1-17.2); Potassium (VBG) 3.59 mmol/L (3.70-5.30); Sodium 141.1 mmol/L (133-146)
[2021-03-15 16:11] LABS: pH (venous) 7.19 (7.32-7.43)
[2021-03-15] MEDS ORDERED: Dexamethasone 4 mg/ml Vial SLOW IVP SCH (16:30)
[2021-03-15] MEDS ORDERED: Dexamethasone 10 MG/ML VIAL SLOW IVP SCH (16:30)
[2021-03-15 16:33] LABS: Lactic Acid 1.5 mmol/L (0.5-2.2)
[2021-03-15] MEDS ORDERED: hydrALAZINE 20 MG/ML VIAL SLOW IVP PRN (16:34)
[2021-03-15 16:38] LABS: Magnesium 2.7 mg/dL (1.6-2.6); Phosphorus 3.6 mg/dL (2.3-4.7)
[2021-03-15] MEDS ORDERED: Electrolyte Replacement Protocol FS PRN (16:45)
[2021-03-15] MEDS ORDERED: Acetaminophen 650 MG/20.3 ML UDCUP PO PRN (17:15)
[2021-03-15 17:47] LABS: Actual Bicarbonate (HCO3a) 23.4 mEq/L (22-28); Analyzer IN Cardio ER; Base Excess (BEa) -3.2 mEq/L (-2.0 to +3.0); CO2 Tension 47.8 mmHg (35.0-45.0); Calcium, Ionized (arterial) 1.21 mmol/L (1.12-1.30); Carboxyhemoglobin (COHb) 0.6 gm% (0.0-3.0); Hemoglobin (Hb) 14.2 g/dL (14.0-18.0); O2 Tension (PaO2), arterial 75.4 mmHg (> 80.0); Potassium - ABG Lab 3.62 mmol/L (3.70-5.30); pH, Arterial 7.31 (7.35-7.45)
[2021-03-15 17:52] LABS: Puncture Site LRA
[2021-03-15] MEDS ORDERED: REMDESIVIR 200 MG in Sodium Chloride 0.9% 250 ML 210 ML IV SCH (18:00)
[2021-03-15] MEDS: Albuterol 200 PUFF (6.7GM INHALER) INH SCH (20:01)
[2021-03-15] MEDS ORDERED: Albuterol 200 PUFF (6.7GM INHALER) ONE (20:03)
[2021-03-15] MEDS: Mometasone 200 MCG/Formoterol 5 MCG 120 PUFF INHALER INH SCH (23:30)
[2021-03-15] MEDS: Vancomycin 1 GM in Premix Bag 1 BAG IVPB SCH (23:44)
[2021-03-15] MEDS: Enoxaparin Sodium 40 MG/0.4 ML SYRINGE SC SCH (23:44)
[2021-03-15] MEDS: Famotidine/PF 20 mg/2ml Vial SLOW IVP SCH (23:45)
[2021-03-15] MEDS: Ascorbic Acid 500 mg Chewable Tablet PO SCH (23:58)
[2021-03-15] MEDS: Senokot S 8.6-50 MG TAB PO SCH (23:59)
[2021-03-15] MEDS: Zinc Sulfate 220 MG CAP PO SCH (23:59)
[2021-03-15] MEDS: Cholecalciferol 1,000 UNITS (25 MCG) TAB PO SCH (23:59)
[2021-03-16] MEDS: Cefepime 1 GM in Sodium Chloride 0.9% 100 ML IVPB SCH ×2 (01:43→13:50)
[2021-03-16] MEDS: Albuterol 200 PUFF (6.7GM INHALER) INH SCH ×7 (02:30→22:59)
[2021-03-16 04:14] LABS: ALT (SGPT) 34 U/L (8-55); AST (SGOT) 34 U/L (5-34); Albumin 3.3 g/dL (3.4-4.8); Alkaline Phosphatase 121 U/L (40-110); Anion Gap 13 mmol/L (10-20); BUN (Urea Nitrogen) 37 mg/dL (8.4-25.7); Bilirubin, Total 0.5 mg/dL (0.2-1.2); Calc. Creatinine Clearance 44 mL/min (70-130); Calcium 9.2 mg/dL (7.8-10.44); Carbon Dioxide 26 mmol/L (23-31); Chloride 109 mmol/L (98-107); Globulin 2.7 g/dL (2.4-3.5); Glucose 132 mg/dL (80-115); Magnesium 2.5 mg/dL (1.6-2.6); Potassium 3.8 mmol/L (3.5-5.1); Sodium 144 mmol/L (136-145)
[2021-03-16 04:15] LABS: Band 9 % (5-11); Hemoglobin 13.2 g/dL (14.0-18.0); Lymphocytes 1 % (21-51); MDiff Complete? YES; Mean Corpuscular HGB CONC 33.1 g/dL (32.0-36.0); Mean Corpuscular Volume 93.6 fL (78.0-98.0); Mean Platelet Volume 8.3 fL (7.4-10.4); Monocytes 4 % (0-10); Neutrophil 85 % (42-75); Platelet Count 111 thou/uL (130-400); Platelet Morphology Comment Appears Decreased; RBC Distribution Width 14.1 % (11.5-14.5); RBC Morphology Normal; Reactive Lymphocytes 1 % (0-10); Red Blood Cell (RBC) Count 4.27 mill/uL (4.70-6.10); White Blood Cell (WBC) Count 4.8 thou/uL (4.8-10.8)
[2021-03-16 04:19] LABS: Phosphorus 2.8 mg/dL (2.3-4.7)
[2021-03-16] MEDS: Mometasone 200 MCG/Formoterol 5 MCG 120 PUFF INHALER INH SCH ×2 (05:27→17:52)
[2021-03-16] MEDS: Aspirin 81 mg Enteric Coated Tablet PO SCH (07:47)
[2021-03-16] MEDS: Enoxaparin Sodium 40 MG/0.4 ML SYRINGE SC SCH ×2 (07:48→20:12)
[2021-03-16] MEDS: Dexamethasone 10 MG/ML VIAL SLOW IVP SCH (07:48)
[2021-03-16] MEDS: Senokot S 8.6-50 MG TAB PO SCH ×2 (07:48→20:12)
[2021-03-16] MEDS: Vancomycin 1 GM in Premix Bag 1 BAG IVPB SCH (16:50)
[2021-03-16] MEDS: REMDESIVIR 100 MG in Sodium Chloride 0.9% 250 ML 230 ML IV SCH (17:52)
[2021-03-16] MEDS: Cholecalciferol 1,000 UNITS (25 MCG) TAB PO SCH (20:12)
[2021-03-16] MEDS: Famotidine/PF 20 mg/2ml Vial SLOW IVP SCH (20:12)
[2021-03-16] MEDS: Zinc Sulfate 220 MG CAP PO SCH (20:12)
[2021-03-16] MEDS: Metoprolol Tartrate 25 MG TAB PO SCH (20:12)
[2021-03-16] MEDS: Ascorbic Acid 500 mg Chewable Tablet PO SCH (20:12)
[2021-03-16] MEDS: Simvastatin 10 MG TAB PO SCH (20:26)
[2021-03-17] MEDS: Cefepime 1 GM in Sodium Chloride 0.9% 100 ML IVPB SCH (01:19)
[2021-03-17] MEDS: Albuterol 200 PUFF (6.7GM INHALER) INH SCH ×6 (01:55→21:53)
[2021-03-17 04:04] LABS: Band 7 % (5-11); Lymphocytes 2 % (21-51); MDiff Complete? YES; Mean Corpuscular HGB CONC 32.2 g/dL (32.0-36.0); Mean Corpuscular Hemoglobin 30.1 pg (27.0-31.0); Mean Corpuscular Volume 93.5 fL (78.0-98.0); Mean Platelet Volume 8.1 fL (7.4-10.4); Monocytes 6 % (0-10); Neutrophil 85 % (42-75); Platelet Count 146 thou/uL (130-400); Platelet Morphology Comment Appears Adequate; RBC Distribution Width 14.4 % (11.5-14.5); RBC Morphology Normal; Red Blood Cell (RBC) Count 4.66 mill/uL (4.70-6.10); White Blood Cell (WBC) Count 7.7 thou/uL (4.8-10.8)
[2021-03-17 04:19] LABS: ALT (SGPT) 34 U/L (8-55); AST (SGOT) 44 U/L (5-34); Albumin 3.4 g/dL (3.4-4.8); Alkaline Phosphatase 129 U/L (40-110); Anion Gap 12 mmol/L (10-20); BUN (Urea Nitrogen) 40 mg/dL (8.4-25.7); Bilirubin, Total 0.7 mg/dL (0.2-1.2); Calc. Creatinine Clearance 48 mL/min (70-130); Calcium 9.5 mg/dL (7.8-10.44); Carbon Dioxide 27 mmol/L (23-31); Chloride 109 mmol/L (98-107); Globulin 2.8 g/dL (2.4-3.5); Glucose 94 mg/dL (80-115); Magnesium 2.4 mg/dL (1.6-2.6); Potassium 4.3 mmol/L (3.5-5.1); Protein, Total 6.2 g/dL (5.8-8.1); Sodium 144 mmol/L (136-145)
[2021-03-17 04:30] LABS: Phosphorus 3.5 mg/dL (2.3-4.7)
[2021-03-17] MEDS: Mometasone 200 MCG/Formoterol 5 MCG 120 PUFF INHALER INH SCH ×2 (06:10→17:24)
[2021-03-17] MEDS: Budesonide 0.5 MG/2 ML NEB NEB SCH ×2 (06:12→17:24)
[2021-03-17] MEDS: Aspirin 81 mg Enteric Coated Tablet PO SCH ×2 (07:35→07:36)
[2021-03-17] MEDS: Clopidogrel Bisulfate 75 MG TAB PO SCH (07:35)
[2021-03-17] MEDS: Lisinopril 20 MG TAB PO SCH (07:36)
[2021-03-17] MEDS: Enoxaparin Sodium 40 MG/0.4 ML SYRINGE SC SCH ×2 (07:36→20:28)
[2021-03-17] MEDS: Senokot S 8.6-50 MG TAB PO SCH ×2 (07:36→20:28)
[2021-03-17] MEDS: Metoprolol Tartrate 25 MG TAB PO SCH ×2 (07:36→20:28)
[2021-03-17] MEDS: Dexamethasone 10 MG/ML VIAL SLOW IVP SCH (09:58)
[2021-03-17] MEDS: CEFEPIME HCL IN DEXTROSE 5 % 1 GM in Premix Bag 1 BAG IVPB SCH (15:04)
[2021-03-17] MEDS: Vancomycin 1 GM in Premix Bag 1 BAG IVPB SCH (16:54)
[2021-03-17] MEDS: REMDESIVIR 100 MG in Sodium Chloride 0.9% 250 ML 230 ML IV SCH (17:23)
[2021-03-17 17:29] LABS: Vancomycin, Trough 9.7 ug/mL
[2021-03-17] MEDS: Ascorbic Acid 500 mg Chewable Tablet PO SCH (20:28)
[2021-03-17] MEDS: Simvastatin 10 MG TAB PO SCH (20:28)
[2021-03-17] MEDS: Famotidine/PF 20 mg/2ml Vial SLOW IVP SCH (20:28)
[2021-03-17] MEDS: Cholecalciferol 1,000 UNITS (25 MCG) TAB PO SCH (20:28)
[2021-03-17] MEDS: Zinc Sulfate 220 MG CAP PO SCH (20:28)
[2021-03-17] MEDS ORDERED: Vancomycin HCl 500 MG in Sodium Chloride 0.9% 100 ML IVPB SCH (20:30)
[2021-03-18] MEDS: CEFEPIME HCL IN DEXTROSE 5 % 1 GM in Premix Bag 1 BAG IVPB SCH (01:44)
[2021-03-18] MEDS: Albuterol 200 PUFF (6.7GM INHALER) INH SCH ×6 (01:45→22:26)
[2021-03-18 04:43] LABS: ALT (SGPT) 35 U/L (8-55); AST (SGOT) 40 U/L (5-34); Albumin 3.3 g/dL (3.4-4.8); Alkaline Phosphatase 125 U/L (40-110); Anion Gap 13 mmol/L (10-20); BUN (Urea Nitrogen) 47 mg/dL (8.4-25.7); Bilirubin, Total 0.6 mg/dL (0.2-1.2); Calc. Creatinine Clearance 48 mL/min (70-130); Calcium 9.1 mg/dL (7.8-10.44); Carbon Dioxide 26 mmol/L (23-31); Chloride 112 mmol/L (98-107); Globulin 2.6 g/dL (2.4-3.5); Glucose 110 mg/dL (80-115); Magnesium 2.4 mg/dL (1.6-2.6); Phosphorus 3.3 mg/dL (2.3-4.7); Potassium 3.6 mmol/L (3.5-5.1); Protein, Total 5.9 g/dL (5.8-8.1); Sodium 147 mmol/L (136-145)
[2021-03-18 05:10] LABS: Band 2 % (5-11); Hemoglobin 14.9 g/dL (14.0-18.0); Lymphocytes 3 % (21-51); MDiff Complete? YES; Mean Corpuscular HGB CONC 30.8 g/dL (32.0-36.0); Mean Corpuscular Hemoglobin 29.2 pg (27.0-31.0); Mean Corpuscular Volume 94.6 fL (78.0-98.0); Mean Platelet Volume 7.8 fL (7.4-10.4); Monocytes 6 % (0-10); Neutrophil 89 % (42-75); Platelet Count 196 thou/uL (130-400); Platelet Morphology Comment Appears Adequate; RBC Distribution Width 14.6 % (11.5-14.5); RBC Morphology Normal; White Blood Cell (WBC) Count 8.3 thou/uL (4.8-10.8)
[2021-03-18] MEDS: Budesonide 0.5 MG/2 ML NEB NEB SCH ×2 (05:22→18:51)
[2021-03-18] MEDS: Mometasone 200 MCG/Formoterol 5 MCG 120 PUFF INHALER INH SCH (05:22)
[2021-03-18] MEDS ORDERED: guaiFENesin 200 MG TAB PO PRN (08:47)
[2021-03-18] MEDS: Aspirin 81 mg Enteric Coated Tablet PO SCH (09:10)
[2021-03-18] MEDS: Senokot S 8.6-50 MG TAB PO SCH ×2 (09:10→21:00)
[2021-03-18] MEDS: Metoprolol Tartrate 25 MG TAB PO SCH ×2 (09:10→21:00)
[2021-03-18] MEDS: Clopidogrel Bisulfate 75 MG TAB PO SCH (09:10)
[2021-03-18] MEDS: Lisinopril 20 MG TAB PO SCH (09:11)
[2021-03-18] MEDS: Dexamethasone 10 MG/ML VIAL SLOW IVP SCH (09:11)
[2021-03-18] MEDS: Enoxaparin Sodium 40 MG/0.4 ML SYRINGE SC SCH ×2 (09:15→21:00)
[2021-03-18] MEDS: Azithromycin 250 MG TAB PO SCH (09:18)
[2021-03-18] MEDS ORDERED: Vancomycin 1.5 GRAM/300 ML BAG 1.5 GM in Premix Bag 1 BAG IVPB SCH (18:00)
[2021-03-18] MEDS: REMDESIVIR 100 MG in Sodium Chloride 0.9% 250 ML 230 ML IV SCH (18:06)
[2021-03-18] MEDS: Zinc Sulfate 220 MG CAP PO SCH (21:00)
[2021-03-18] MEDS: Famotidine 20 MG TAB PO SCH (21:00)
[2021-03-18] MEDS: Ascorbic Acid 500 mg Chewable Tablet PO SCH (21:00)
[2021-03-18] MEDS: Simvastatin 10 MG TAB PO SCH (21:00)
[2021-03-18] MEDS: Cholecalciferol 1,000 UNITS (25 MCG) TAB PO SCH (21:00)
[2021-03-19] MEDS: Albuterol 200 PUFF (6.7GM INHALER) INH SCH ×6 (02:05→21:42)
[2021-03-19] MEDS: Budesonide 0.5 MG/2 ML NEB NEB SCH ×2 (05:52→18:37)
[2021-03-19 09:30] LABS: Actual Bicarbonate (HCO3a) 24.1 mEq/L (22-28); Base Excess (BEa) -0.3 mEq/L (-2.0 to +3.0); CO2 Tension 38.8 mmHg (35.0-45.0); Calcium, Ionized (arterial) 1.29 mmol/L (1.12-1.30); Carboxyhemoglobin (COHb) 0.4 gm% (0.0-3.0); Hemoglobin (Hb) 15.3 g/dL (14.0-18.0); Potassium - ABG Lab 3.83 mmol/L (3.70-5.30); pH, Arterial 7.41 (7.35-7.45)
[2021-03-19] MEDS: Dexamethasone 10 MG/ML VIAL SLOW IVP SCH ×2 (09:53→10:24)
[2021-03-19] MEDS: Metoprolol Tartrate 25 MG TAB PO SCH ×2 (10:22→21:25)
[2021-03-19] MEDS: Senokot S 8.6-50 MG TAB PO SCH ×2 (10:22→21:26)
[2021-03-19] MEDS: Clopidogrel Bisulfate 75 MG TAB PO SCH (10:22)
[2021-03-19] MEDS: Lisinopril 20 MG TAB PO SCH (10:23)
[2021-03-19] MEDS: Aspirin 81 mg Enteric Coated Tablet PO SCH (10:23)
[2021-03-19] MEDS: Azithromycin 250 MG TAB PO SCH (10:23)
[2021-03-19] MEDS: Enoxaparin Sodium 40 MG/0.4 ML SYRINGE SC SCH ×2 (10:24→21:23)
[2021-03-19 10:51] LABS: O2 Tension (PaO2), arterial 54.4 mmHg (> 80.0); Puncture Site RRA
[2021-03-19] MEDS: REMDESIVIR 100 MG in Sodium Chloride 0.9% 250 ML 230 ML IV SCH (18:35)
[2021-03-19] MEDS: Sodium Chloride 0.9% 1,000 ML IV SCH (18:36)
[2021-03-19] MEDS: Dexamethasone 4 mg/ml Vial SLOW IVP SCH (21:22)
[2021-03-19] MEDS: Ascorbic Acid 500 mg Chewable Tablet PO SCH ×2 (21:24→21:41)
[2021-03-19] MEDS: Zinc Sulfate 220 MG CAP PO SCH ×2 (21:24→21:42)
[2021-03-19] MEDS: Famotidine 20 MG TAB PO SCH ×2 (21:24→21:42)
[2021-03-19] MEDS: Cholecalciferol 1,000 UNITS (25 MCG) TAB PO SCH ×2 (21:24→21:41)
[2021-03-19] MEDS: Simvastatin 10 MG TAB PO SCH ×2 (21:26→21:42)
[2021-03-20] MEDS: Albuterol 200 PUFF (6.7GM INHALER) INH SCH ×5 (02:40→21:25)
[2021-03-20 03:42] LABS: #Lymphocytes 0.2 thou/uL (1.20-3.40); #Monocytes 0.2 thou/uL (0.11-0.59); #Neutrophils 6.2 thou/uL (1.40-6.50); %Lymphocytes 2.5 % (21.0-51.0); %Monocytes 2.4 % (0.0-10.0); %Neutrophils 95.2 % (42.0-75.0); Hemoglobin 13.8 g/dL (14.0-18.0); Mean Corpuscular HGB CONC 30.1 g/dL (32.0-36.0); Mean Corpuscular Hemoglobin 28.8 pg (27.0-31.0); Mean Corpuscular Volume 95.9 fL (78.0-98.0); Mean Platelet Volume 8.1 fL (7.4-10.4); Platelet Count 178 thou/uL (130-400); RBC Distribution Width 14.8 % (11.5-14.5); Red Blood Cell (RBC) Count 4.79 mill/uL (4.70-6.10); White Blood Cell (WBC) Count 6.5 thou/uL (4.8-10.8)
[2021-03-20] MEDS: Budesonide 0.5 MG/2 ML NEB NEB SCH ×2 (07:15→20:13)
[2021-03-20 07:37] LABS: Albumin 3.1 g/dL (3.4-4.8)
[2021-03-20 07:38] LABS: Potassium 4.8 mmol/L (3.5-5.1)
[2021-03-20 07:39] LABS: Calcium 9.8 mg/dL (7.8-10.44); Glucose 136 mg/dL (80-115)
[2021-03-20 07:40] LABS: Chloride 128 mmol/L (98-107); Globulin 2.7 g/dL (2.4-3.5); Protein, Total 5.8 g/dL (5.8-8.1); Sodium 165 mmol/L (136-145)
[2021-03-20 07:41] LABS: Anion Gap 16 mmol/L (10-20); Bilirubin, Total 0.9 mg/dL (0.2-1.2); Carbon Dioxide 26 mmol/L (23-31)
[2021-03-20 07:42] LABS: Alkaline Phosphatase 103 U/L (40-110)
[2021-03-20 07:43] LABS: Calc. Creatinine Clearance 41 mL/min (70-130)
[2021-03-20 07:44] LABS: BUN (Urea Nitrogen) 46 mg/dL (8.4-25.7)
[2021-03-20 07:45] LABS: ALT (SGPT) 35 U/L (8-55); AST (SGOT) 28 U/L (5-34)
[2021-03-20] MEDS: Enoxaparin Sodium 40 MG/0.4 ML SYRINGE SC SCH ×2 (09:17→21:19)
[2021-03-20] MEDS: Dexamethasone 4 mg/ml Vial SLOW IVP SCH ×2 (09:17→21:19)
[2021-03-20] MEDS: Clopidogrel Bisulfate 75 MG TAB PO SCH (09:25)
[2021-03-20] MEDS: Lisinopril 20 MG TAB PO SCH (09:25)
[2021-03-20] MEDS: Aspirin 81 mg Enteric Coated Tablet PO SCH (09:25)
[2021-03-20] MEDS: Azithromycin 250 MG TAB PO SCH (09:25)
[2021-03-20] MEDS: Senokot S 8.6-50 MG TAB PO SCH ×2 (09:26→21:20)
[2021-03-20] MEDS: Metoprolol Tartrate 25 MG TAB PO SCH ×2 (09:26→21:20)
[2021-03-20] MEDS ORDERED: Dextrose 5% in Water 1,000 ML IV SCH (09:30)
[2021-03-20] MEDS: Sodium Chloride 0.9% 1,000 ML IV SCH (10:01)
[2021-03-20] MEDS: Zinc Sulfate 220 MG CAP PO SCH (21:20)
[2021-03-20] MEDS: Ascorbic Acid 500 mg Chewable Tablet PO SCH (21:20)
[2021-03-20] MEDS: Cholecalciferol 1,000 UNITS (25 MCG) TAB PO SCH (21:20)
[2021-03-20] MEDS: Simvastatin 10 MG TAB PO SCH (21:20)
[2021-03-20] MEDS: Famotidine 20 MG TAB PO SCH (21:20)
[2021-03-20] MEDS: Dextrose 5% in Water 1,000 ML IV SCH (21:22)
[2021-03-21] MEDS: Albuterol 200 PUFF (6.7GM INHALER) INH SCH ×4 (03:02→17:22)
[2021-03-21 04:05] LABS: Anion Gap 10 mmol/L (10-20); BUN (Urea Nitrogen) 45 mg/dL (8.4-25.7); Calc. Creatinine Clearance 46 mL/min (70-130); Calcium 9.3 mg/dL (7.8-10.44); Carbon Dioxide 29 mmol/L (23-31); Chloride 124 mmol/L (98-107); Glucose 176 mg/dL (80-115); Potassium 4.2 mmol/L (3.5-5.1); Sodium 159 mmol/L (136-145)
[2021-03-21] MEDS: Budesonide 0.5 MG/2 ML NEB NEB SCH (06:28)
[2021-03-21] MEDS: Clopidogrel Bisulfate 75 MG TAB PO SCH (08:12)
[2021-03-21] MEDS: Senokot S 8.6-50 MG TAB PO SCH ×2 (08:12→20:44)
[2021-03-21] MEDS: Metoprolol Tartrate 25 MG TAB PO SCH ×2 (08:12→20:45)
[2021-03-21] MEDS: Aspirin 81 mg Enteric Coated Tablet PO SCH (08:12)
[2021-03-21] MEDS: Lisinopril 20 MG TAB PO SCH (08:12)
[2021-03-21] MEDS: Dexamethasone 4 mg/ml Vial SLOW IVP SCH ×2 (08:12→20:45)
[2021-03-21] MEDS: Enoxaparin Sodium 40 MG/0.4 ML SYRINGE SC SCH ×2 (08:12→20:45)
[2021-03-21] MEDS: Dextrose 5% in Water 1,000 ML IV SCH ×2 (11:26→20:52)
[2021-03-21] MEDS: Famotidine 20 MG TAB PO SCH (20:44)
[2021-03-21] MEDS: Cholecalciferol 1,000 UNITS (25 MCG) TAB PO SCH (20:44)
[2021-03-21] MEDS: Zinc Sulfate 220 MG CAP PO SCH (20:44)
[2021-03-21] MEDS: Simvastatin 10 MG TAB PO SCH (20:44)
[2021-03-21] MEDS: Ascorbic Acid 500 mg Chewable Tablet PO SCH (20:44)
[2021-03-22] MEDS: Albuterol 200 PUFF (6.7GM INHALER) INH SCH ×5 (06:57→18:34)
[2021-03-22] MEDS: Budesonide 0.5 MG/2 ML NEB NEB SCH ×3 (06:57→18:34)
[2021-03-22] MEDS: Enoxaparin Sodium 40 MG/0.4 ML SYRINGE SC SCH ×2 (08:14→21:39)
[2021-03-22] MEDS: Lisinopril 20 MG TAB PO SCH (08:15)
[2021-03-22] MEDS: Metoprolol Tartrate 25 MG TAB PO SCH ×2 (08:15→21:38)
[2021-03-22] MEDS: Dexamethasone 4 mg/ml Vial SLOW IVP SCH ×2 (08:15→21:39)
[2021-03-22] MEDS: Aspirin 81 mg Enteric Coated Tablet PO SCH (08:15)
[2021-03-22] MEDS: Senokot S 8.6-50 MG TAB PO SCH ×2 (08:15→22:11)
[2021-03-22] MEDS: Clopidogrel Bisulfate 75 MG TAB PO SCH (08:16)
[2021-03-22] MEDS: Dextrose 5% in Water 1,000 ML IV SCH ×2 (12:38→18:04)
[2021-03-22] MEDS: Simvastatin 10 MG TAB PO SCH (21:38)
[2021-03-22] MEDS: Ascorbic Acid 500 mg Chewable Tablet PO SCH (21:38)
[2021-03-22] MEDS: Zinc Sulfate 220 MG CAP PO SCH (21:38)
[2021-03-22] MEDS: Cholecalciferol 1,000 UNITS (25 MCG) TAB PO SCH (21:38)
[2021-03-22] MEDS: Famotidine 20 MG TAB PO SCH (21:39)
[2021-03-22] MEDS ORDERED: Lithium Carbonate 150 MG CAP PO SCH (23:00)
[2021-03-23] MEDS: Albuterol 200 PUFF (6.7GM INHALER) INH SCH ×5 (00:06→23:27)
[2021-03-23] MEDS: Dextrose 5% in Water 1,000 ML IV SCH ×3 (02:05→14:54)
[2021-03-23 07:37] LABS: #Lymphocytes 0.2 thou/uL (1.20-3.40); #Monocytes 0.2 thou/uL (0.11-0.59); #Neutrophils 9.2 thou/uL (1.40-6.50); %Eosinophils 0.1 % (0.0-10.0); %Lymphocytes 1.8 % (21.0-51.0); %Monocytes 1.8 % (0.0-10.0); %Neutrophils 96.3 % (42.0-75.0); Hemoglobin 13.5 g/dL (14.0-18.0); Mean Corpuscular HGB CONC 30.6 g/dL (32.0-36.0); Mean Corpuscular Hemoglobin 29.4 pg (27.0-31.0); Mean Platelet Volume 8.5 fL (7.4-10.4); Platelet Count 155 thou/uL (130-400); RBC Distribution Width 14.1 % (11.5-14.5); Red Blood Cell (RBC) Count 4.58 mill/uL (4.70-6.10); White Blood Cell (WBC) Count 9.6 thou/uL (4.8-10.8)
[2021-03-23] MEDS: Budesonide 0.5 MG/2 ML NEB NEB SCH ×2 (07:54→11:13)
[2021-03-23] MEDS: Enoxaparin Sodium 40 MG/0.4 ML SYRINGE SC SCH ×2 (07:56→22:23)
[2021-03-23] MEDS: Dexamethasone 4 mg/ml Vial SLOW IVP SCH ×2 (07:56→22:25)
[2021-03-23] MEDS: Senokot S 8.6-50 MG TAB PO SCH ×2 (07:57→22:25)
[2021-03-23 07:59] LABS: Anion Gap 9 mmol/L (10-20); BUN (Urea Nitrogen) 31 mg/dL (8.4-25.7); Calc. Creatinine Clearance 69 mL/min (70-130); Calcium 8.9 mg/dL (7.8-10.44); Carbon Dioxide 34 mmol/L (23-31); Chloride 108 mmol/L (98-107); Glucose 148 mg/dL (80-115); Sodium 147 mmol/L (136-145)
[2021-03-23] MEDS: Aspirin 81 mg Enteric Coated Tablet PO SCH (08:01)
[2021-03-23] MEDS: Lisinopril 20 MG TAB PO SCH (08:01)
[2021-03-23] MEDS: Metoprolol Tartrate 25 MG TAB PO SCH ×2 (08:01→22:26)
[2021-03-23] MEDS: Clopidogrel Bisulfate 75 MG TAB PO SCH (08:01)
[2021-03-23] MEDS: Lithium Carbonate 150 MG CAP PO SCH ×3 (08:01→22:24)
[2021-03-23] MEDS: Zinc Sulfate 220 MG CAP PO SCH (22:24)
[2021-03-23] MEDS: Cholecalciferol 1,000 UNITS (25 MCG) TAB PO SCH (22:24)
[2021-03-23] MEDS: Simvastatin 10 MG TAB PO SCH (22:24)
[2021-03-23] MEDS: Ascorbic Acid 500 mg Chewable Tablet PO SCH (22:24)
[2021-03-23] MEDS: Famotidine 20 MG TAB PO SCH (22:26)
[2021-03-24] MEDS: Albuterol 200 PUFF (6.7GM INHALER) INH SCH ×7 (04:17→20:30)
[2021-03-24 06:34] LABS: Anion Gap 10 mmol/L (10-20); BUN (Urea Nitrogen) 30 mg/dL (8.4-25.7); Calc. Creatinine Clearance 66 mL/min (70-130); Calcium 8.9 mg/dL (7.8-10.44); Carbon Dioxide 32 mmol/L (23-31); Chloride 105 mmol/L (98-107); Glucose 184 mg/dL (80-115); Potassium 4.6 mmol/L (3.5-5.1); Sodium 142 mmol/L (136-145)
[2021-03-24] MEDS: Budesonide 0.5 MG/2 ML NEB NEB SCH ×2 (07:24→18:04)
[2021-03-24] MEDS: Lithium Carbonate 150 MG CAP PO SCH ×2 (08:34→15:48)
[2021-03-24] MEDS: Clopidogrel Bisulfate 75 MG TAB PO SCH (08:34)
[2021-03-24] MEDS: Metoprolol Tartrate 25 MG TAB PO SCH ×2 (08:34→09:12)
[2021-03-24] MEDS: Aspirin 81 mg Enteric Coated Tablet PO SCH (08:34)
[2021-03-24] MEDS: Enoxaparin Sodium 40 MG/0.4 ML SYRINGE SC SCH (08:34)
[2021-03-24] MEDS: Lisinopril 20 MG TAB PO SCH (08:34)
[2021-03-24] MEDS: Senokot S 8.6-50 MG TAB PO SCH (08:34)
[2021-03-24] MEDS: Dexamethasone 4 mg/ml Vial SLOW IVP SCH (08:41)
[2021-03-24] MEDS: Dextrose 5% in Water 1,000 ML IV SCH (08:41)
[2021-03-25] MEDS: Enoxaparin Sodium 40 MG/0.4 ML SYRINGE SC SCH ×3 (00:48→22:36)
[2021-03-25] MEDS: Cholecalciferol 1,000 UNITS (25 MCG) TAB PO SCH ×2 (00:48→22:35)
[2021-03-25] MEDS: Famotidine 20 MG TAB PO SCH ×2 (00:48→22:34)
[2021-03-25] MEDS: Ascorbic Acid 500 mg Chewable Tablet PO SCH ×2 (00:48→22:34)
[2021-03-25] MEDS: Senokot S 8.6-50 MG TAB PO SCH ×3 (00:49→22:35)
[2021-03-25] MEDS: Metoprolol Tartrate 25 MG TAB PO SCH ×3 (00:49→22:34)
[2021-03-25] MEDS: Lithium Carbonate 150 MG CAP PO SCH ×4 (00:49→22:39)
[2021-03-25] MEDS: Simvastatin 10 MG TAB PO SCH ×2 (00:49→22:34)
[2021-03-25] MEDS: Zinc Sulfate 220 MG CAP PO SCH ×2 (00:50→22:35)
[2021-03-25] MEDS: Albuterol 200 PUFF (6.7GM INHALER) INH SCH ×6 (04:07→22:39)
[2021-03-25 06:19] LABS: Hemoglobin 13.6 g/dL (14.0-18.0); Mean Corpuscular HGB CONC 31.1 g/dL (32.0-36.0); Mean Corpuscular Hemoglobin 29.1 pg (27.0-31.0); Mean Corpuscular Volume 93.7 fL (78.0-98.0); Mean Platelet Volume 8.9 fL (7.4-10.4); Platelet Count 146 thou/uL (130-400); RBC Distribution Width 13.9 % (11.5-14.5); Red Blood Cell (RBC) Count 4.68 mill/uL (4.70-6.10); White Blood Cell (WBC) Count 10.4 thou/uL (4.8-10.8)
[2021-03-25 06:27] LABS: Anion Gap 9 mmol/L (10-20); BUN (Urea Nitrogen) 32 mg/dL (8.4-25.7); Calc. Creatinine Clearance 61 mL/min (70-130); Calcium 9.3 mg/dL (7.8-10.44); Carbon Dioxide 32 mmol/L (23-31); Chloride 108 mmol/L (98-107); Glucose 99 mg/dL (80-115); Potassium 4.3 mmol/L (3.5-5.1); Sodium 145 mmol/L (136-145)
[2021-03-25 06:56] LABS: Band 3 % (5-11); Eosinophils 1 % (0-10); Lymphocytes 2 % (21-51); MDiff Complete? YES; Monocytes 6 % (0-10); Neutrophil 88 % (42-75)
[2021-03-25] MEDS: Budesonide 0.5 MG/2 ML NEB NEB SCH ×2 (08:11→18:23)
[2021-03-25] MEDS ORDERED: Albuterol 200 PUFF (6.7GM INHALER) INH PRN (08:15)
[2021-03-25] MEDS: Clopidogrel Bisulfate 75 MG TAB PO SCH (09:00)
[2021-03-25] MEDS ORDERED: Dextrose 50% Abboject 50 ML SYRINGE ONE (12:37)
[2021-03-25] MEDS: Aspirin 81 mg Enteric Coated Tablet PO SCH (12:40)
[2021-03-25] MEDS: Dexamethasone 4 mg/ml Vial SLOW IVP SCH (12:40)
[2021-03-25] MEDS: Lisinopril 20 MG TAB PO SCH (13:09)
[2021-03-25 13:19] VITALS: BMI 17.4
[2021-03-26] MEDS: Albuterol 200 PUFF (6.7GM INHALER) INH SCH ×6 (04:43→22:04)
[2021-03-26] MEDS: Metoprolol Tartrate 25 MG TAB PO SCH ×2 (08:24→22:05)
[2021-03-26] MEDS: Lisinopril 20 MG TAB PO SCH (08:24)
[2021-03-26] MEDS: Clopidogrel Bisulfate 75 MG TAB PO SCH (08:24)
[2021-03-26] MEDS: Aspirin 81 mg Enteric Coated Tablet PO SCH (08:24)
[2021-03-26] MEDS: Enoxaparin Sodium 40 MG/0.4 ML SYRINGE SC SCH ×2 (08:24→22:06)
[2021-03-26] MEDS: Lithium Carbonate 150 MG CAP PO SCH ×3 (08:24→22:05)
[2021-03-26] MEDS: Senokot S 8.6-50 MG TAB PO SCH ×2 (08:24→22:05)
[2021-03-26] MEDS: Dexamethasone 4 mg/ml Vial SLOW IVP SCH (08:25)
[2021-03-26] MEDS: Budesonide 0.5 MG/2 ML NEB NEB SCH ×2 (08:25→18:19)
[2021-03-26 10:06] LABS: #Lymphocytes 0.4 thou/uL (1.20-3.40); #Monocytes 0.6 thou/uL (0.11-0.59); #Neutrophils 8.7 thou/uL (1.40-6.50); %Basophils 0.3 % (0.0-1.0); %Eosinophils 0.5 % (0.0-10.0); %Lymphocytes 3.9 % (21.0-51.0); %Monocytes 6.3 % (0.0-10.0); %Neutrophils 89.1 % (42.0-75.0); Mean Corpuscular HGB CONC 32.1 g/dL (32.0-36.0); Mean Corpuscular Hemoglobin 29.9 pg (27.0-31.0); Mean Platelet Volume 9.3 fL (7.4-10.4); Platelet Count 143 thou/uL (130-400); RBC Distribution Width 13.7 % (11.5-14.5); Red Blood Cell (RBC) Count 4.35 mill/uL (4.70-6.10); White Blood Cell (WBC) Count 9.8 thou/uL (4.8-10.8)
[2021-03-26 10:22] LABS: Anion Gap 11 mmol/L (10-20); BUN (Urea Nitrogen) 29 mg/dL (8.4-25.7); Calc. Creatinine Clearance 55 mL/min (70-130); Calcium 9.2 mg/dL (7.8-10.44); Carbon Dioxide 27 mmol/L (23-31); Chloride 108 mmol/L (98-107); Glucose 109 mg/dL (80-115); Potassium 4.3 mmol/L (3.5-5.1); Sodium 142 mmol/L (136-145)
[2021-03-26] MEDS: Cholecalciferol 1,000 UNITS (25 MCG) TAB PO SCH (22:05)
[2021-03-26] MEDS: Famotidine 20 MG TAB PO SCH (22:05)
[2021-03-26] MEDS: Simvastatin 10 MG TAB PO SCH (22:05)
[2021-03-26] MEDS: Zinc Sulfate 220 MG CAP PO SCH (22:05)
[2021-03-26] MEDS: Ascorbic Acid 500 mg Chewable Tablet PO SCH (22:06)
[2021-03-27] MEDS: Albuterol 200 PUFF (6.7GM INHALER) INH SCH ×6 (05:21→22:35)
[2021-03-27] MEDS: Lisinopril 20 MG TAB PO SCH (08:35)
[2021-03-27] MEDS: Lithium Carbonate 150 MG CAP PO SCH ×3 (08:35→21:37)
[2021-03-27] MEDS: Dexamethasone 4 mg/ml Vial SLOW IVP SCH (08:36)
[2021-03-27] MEDS: Enoxaparin Sodium 40 MG/0.4 ML SYRINGE SC SCH (08:36)
[2021-03-27] MEDS: Metoprolol Tartrate 25 MG TAB PO SCH ×2 (08:36→21:37)
[2021-03-27] MEDS: Clopidogrel Bisulfate 75 MG TAB PO SCH (08:36)
[2021-03-27] MEDS: Aspirin 81 mg Enteric Coated Tablet PO SCH (08:36)
[2021-03-27] MEDS: Senokot S 8.6-50 MG TAB PO SCH ×2 (08:36→21:37)
[2021-03-27] MEDS: Budesonide 0.5 MG/2 ML NEB NEB SCH (08:38)
[2021-03-27] MEDS ORDERED: Ipratropium Oral Inhaler INH PRN (12:59)
[2021-03-27] MEDS: Benzonatate 100 MG CAP PO PRN ×2 (13:15→21:36)
[2021-03-27] MEDS: Mometasone 200 MCG/Formoterol 5 MCG 120 PUFF INHALER INH SCH (21:35)
[2021-03-27] MEDS: Zinc Sulfate 220 MG CAP PO SCH (21:35)
[2021-03-27] MEDS: Famotidine 20 MG TAB PO SCH (21:36)
[2021-03-27] MEDS: Cholecalciferol 1,000 UNITS (25 MCG) TAB PO SCH (21:36)
[2021-03-27] MEDS: Ascorbic Acid 500 mg Chewable Tablet PO SCH (21:36)
[2021-03-27] MEDS: Simvastatin 10 MG TAB PO SCH (21:37)
[2021-03-28] MEDS: Albuterol 200 PUFF (6.7GM INHALER) INH SCH ×4 (04:20→15:37)
[2021-03-28] MEDS: Mometasone 200 MCG/Formoterol 5 MCG 120 PUFF INHALER INH SCH (08:47)
[2021-03-28] MEDS: Senokot S 8.6-50 MG TAB PO SCH (08:48)
[2021-03-28] MEDS: Lithium Carbonate 150 MG CAP PO SCH ×2 (08:48→15:37)
[2021-03-28] MEDS: Clopidogrel Bisulfate 75 MG TAB PO SCH (08:49)
[2021-03-28] MEDS: Aspirin 81 mg Enteric Coated Tablet PO SCH (08:49)
[2021-03-28] MEDS: Lisinopril 20 MG TAB PO SCH (08:49)
[2021-03-28] MEDS: Metoprolol Tartrate 25 MG TAB PO SCH (08:49)
[2021-03-28] MEDS ORDERED: Dexamethasone 4 mg/ml Vial SLOW IVP SCH (09:00)
[2021-03-28] MEDS ORDERED: Enoxaparin Sodium 40 MG/0.4 ML SYRINGE SC SCH (09:00)
[2021-03-28 11:58] VITALS: TEMP 97.8
[2021-03-28 16:26] VITALS: BP 99/52
[2021-03-29] MEDS ORDERED: Dexamethasone 4 mg/ml Vial SLOW IVP SCH (09:00)
== END 2021-03-28 16:21 | DRG 871 ==
LOC: ERS 12:49 → ERHOLD 15:55 → IMCU/EMU 23:04 → T4-A 23:06 → IMCU/EMU 23:07 → T4-A 03-21 18:39
PROVIDERS: ADMIT Internal Medicine; ATTEND Internal Medicine
PROC: XW033E5 Introduction of Remdesivir Anti-infective into Peripheral Vein, Percutaneous Approach, New Technology Group 5 (ICD-10-PCS; principal; 2021-03-15)
PROC: 8E0ZXY6 Isolation (ICD-10-PCS; 2021-03-15)
PROC: 5A09357 Assistance with Respiratory Ventilation, Less than 24 Consecutive Hours, Continuous Positive Airway Pressure (ICD-10-PCS; 2021-03-15)
DX: A41.89 Other specified sepsis (principal); U07.1 COVID-19; J12.82 Pneumonia due to coronavirus disease 2019; J96.21 Acute and chronic respiratory failure with hypoxia; J96.22 Acute and chronic respiratory failure with hypercapnia; G93.41 Metabolic encephalopathy; J15.9 Unspecified bacterial pneumonia; J44.1 Chronic obstructive pulmonary disease with (acute) exacerbation; N17.9 Acute kidney failure, unspecified; E87.0 Hyperosmolality and hypernatremia; E78.5 Hyperlipidemia, unspecified; I12.9 Hypertensive chronic kidney disease with stage 1 through stage 4 chronic kidney disease, or unspecified chronic kidney disease; F17.210 Nicotine dependence, cigarettes, uncomplicated; F31.9 Bipolar disorder, unspecified; F41.9 Anxiety disorder, unspecified; N18.2 Chronic kidney disease, stage 2 (mild); E16.2 Hypoglycemia, unspecified; R00.1 Bradycardia, unspecified; Z90.89 Acquired absence of other organs; Z99.81 Dependence on supplemental oxygen; Z79.51 Long term (current) use of inhaled steroids; Z71.6 Tobacco abuse counseling; Z79.899 Other long term (current) drug therapy; Z80.1 Family history of malignant neoplasm of trachea, bronchus and lung
CPT/HCPCS: 0240U; 36415; 36416; 36600; 71045; 71275; 74018; 80048; 80053; 80178; 80202; 82728; 82805; 83605; 83735; 83880; 84100; 84145; 84484; 85007; 85025; 85027; 85379; 85610; 85730; 86140; 87040; 93005; 94660; 94760; 96365; 96367; 96368; 96375; J0456; J0692; J0696; J1100; J1650; J1940; J3370; J3475; J3490; J7050; J7070; Q9967; S0028

== ENCOUNTER 2021-09-06 13:59 | Inpatient (IN) | payer MEDICARE ==
[2021-09-06] MEDS ORDERED: Aspirin Chewable 81 MG TAB ONE (15:55)
[2021-09-06 15:59] LABS: #Eosinphils 0.2 thou/uL (0.0-0.7); #Lymphocytes 0.4 thou/uL (1.20-3.40); #Monocytes 0.6 thou/uL (0.11-0.59); #Neutrophils 5.3 thou/uL (1.40-6.50); %Basophils 0.2 % (0.0-1.0); %Eosinophils 3.1 % (0.0-10.0); %Lymphocytes 6.4 % (21.0-51.0); %Neutrophils 81.2 % (42.0-75.0); Hemoglobin 12.4 g/dL (14.0-18.0); Mean Corpuscular HGB CONC 32.9 g/dL (32.0-36.0); Mean Corpuscular Hemoglobin 30.4 pg (27.0-31.0); Mean Corpuscular Volume 92.4 fL (78.0-98.0); Mean Platelet Volume 7.8 fL (7.4-10.4); Platelet Count 115 thou/uL (130-400); RBC Distribution Width 15.8 % (11.5-14.5); White Blood Cell (WBC) Count 6.5 thou/uL (4.8-10.8)
[2021-09-06] MEDS ORDERED: Aspirin 300 MG Suppository ONE (16:07)
[2021-09-06 16:10] LABS: PTT 33.6 sec (22.9-36.1)
[2021-09-06 16:18] LABS: ALT (SGPT) 9 U/L (8-55); AST (SGOT) 11 U/L (5-34); Albumin 3.8 g/dL (3.4-4.8); Alkaline Phosphatase 117 U/L (40-110); Anion Gap 9 mmol/L (10-20); BUN (Urea Nitrogen) 37 mg/dL (8.4-25.7); Bilirubin, Total 0.5 mg/dL (0.2-1.2); Calc. Creatinine Clearance 0 mL/min (70-130); Calcium 9.1 mg/dL (7.8-10.44); Carbon Dioxide 31 mmol/L (23-31); Chloride 103 mmol/L (98-107); Globulin 2.2 g/dL (2.4-3.5); Glucose 69 mg/dL (80-115); Potassium 4.8 mmol/L (3.5-5.1); Sodium 138 mmol/L (136-145)
[2021-09-06] MEDS ORDERED: hydrALAZINE 20 MG/ML VIAL SLOW IVP PRN (16:46)
[2021-09-06] MEDS: Sodium Chloride 0.9% 1,000 ML IV SCH (20:19)
[2021-09-06] MEDS: Atorvastatin Calcium 40 MG TAB PO SCH (21:47)
[2021-09-06 22:14] VITALS: BMI 21.2
[2021-09-07] MEDS: Sodium Chloride 0.9% 1,000 ML IV SCH ×3 (03:17→20:28)
[2021-09-07 05:50] LABS: Hemoglobin 13.1 g/dL (14.0-18.0); Mean Corpuscular HGB CONC 32.3 g/dL (32.0-36.0); Mean Corpuscular Hemoglobin 30.2 pg (27.0-31.0); Mean Corpuscular Volume 93.3 fL (78.0-98.0); Mean Platelet Volume 8.2 fL (7.4-10.4); Platelet Count 116 thou/uL (130-400); RBC Distribution Width 15.8 % (11.5-14.5); Red Blood Cell (RBC) Count 4.34 mill/uL (4.70-6.10); White Blood Cell (WBC) Count 5.6 thou/uL (4.8-10.8)
[2021-09-07 05:51] LABS: #Basophils 0.1 thou/uL (0.0-0.2); #Eosinphils 0.3 thou/uL (0.0-0.7); #Lymphocytes 0.3 thou/uL (1.20-3.40); #Monocytes 0.5 thou/uL (0.11-0.59); #Neutrophils 4.4 thou/uL (1.40-6.50); %Basophils 1.1 % (0.0-1.0); %Lymphocytes 5.6 % (21.0-51.0); %Monocytes 8.5 % (0.0-10.0); %Neutrophils 79.8 % (42.0-75.0)
[2021-09-07 06:02] LABS: Anion Gap 13 mmol/L (10-20); BUN (Urea Nitrogen) 33 mg/dL (8.4-25.7); Calc. Creatinine Clearance 43 mL/min (70-130); Calcium 9.1 mg/dL (7.8-10.44); Carbon Dioxide 24 mmol/L (23-31); Cardiac Risk 3.2 (Less than 4.5); Chloride 107 mmol/L (98-107); Cholesterol 131 mg/dl (< 200 Desired); Glucose 81 mg/dL (80-115); HDL Cholesterol 41 mg/dL (>60 Neg Risk); LDL Cholesterol, Calculated 74 mg/dL; Potassium 4.4 mmol/L (3.5-5.1); Sodium 140 mmol/L (136-145); Triglycerides 80 mg/dL (Less than 150)
[2021-09-07] MEDS ORDERED: FLU VACC QS2021-22(6MOS UP)/PF 60 MCG/0.5 ML SYRINGE IM ONE (09:00)
[2021-09-07] MEDS: Enoxaparin Sodium 40 MG/0.4 ML SYRINGE SC SCH (09:41)
[2021-09-07] MEDS: Aspirin 325 mg Enteric Coated Tablet PO SCH (09:41)
[2021-09-07] MEDS: Aspirin 300 MG Suppository PR SCH (09:42)
[2021-09-07 15:30] LABS: SARS-CoV-2 PCR by NAA Not Detected (NotDetected)
[2021-09-07] MEDS ORDERED: Clopidogrel Bisulfate 75 MG TAB PO SCH (18:00)
[2021-09-07] MEDS: Atorvastatin Calcium 40 MG TAB PO SCH (20:28)
[2021-09-08 05:46] LABS: #Eosinphils 0.2 thou/uL (0.0-0.7); #Lymphocytes 0.4 thou/uL (1.20-3.40); #Monocytes 0.5 thou/uL (0.11-0.59); #Neutrophils 3.4 thou/uL (1.40-6.50); %Eosinophils 5.2 % (0.0-10.0); %Lymphocytes 7.9 % (21.0-51.0); %Monocytes 10.3 % (0.0-10.0); %Neutrophils 76.7 % (42.0-75.0); Hemoglobin 11.6 g/dL (14.0-18.0); Mean Corpuscular HGB CONC 32.8 g/dL (32.0-36.0); Mean Corpuscular Hemoglobin 30.6 pg (27.0-31.0); Mean Corpuscular Volume 93.5 fL (78.0-98.0); Mean Platelet Volume 7.8 fL (7.4-10.4); Platelet Count 111 thou/uL (130-400); RBC Distribution Width 15.6 % (11.5-14.5); Red Blood Cell (RBC) Count 3.78 mill/uL (4.70-6.10); White Blood Cell (WBC) Count 4.5 thou/uL (4.8-10.8)
[2021-09-08 05:56] LABS: Anion Gap 9 mmol/L (10-20); BUN (Urea Nitrogen) 22 mg/dL (8.4-25.7); Calc. Creatinine Clearance 51 mL/min (70-130); Calcium 9.2 mg/dL (7.8-10.44); Carbon Dioxide 27 mmol/L (23-31); Chloride 111 mmol/L (98-107); Glucose 89 mg/dL (80-115); Potassium 4.6 mmol/L (3.5-5.1); Sodium 142 mmol/L (136-145)
[2021-09-08] MEDS: Clopidogrel Bisulfate 75 MG TAB PO SCH (09:14)
[2021-09-08] MEDS: Enoxaparin Sodium 40 MG/0.4 ML SYRINGE SC SCH (09:14)
[2021-09-08] MEDS: Aspirin 325 mg Enteric Coated Tablet PO SCH (09:14)
[2021-09-08] MEDS: Aspirin 300 MG Suppository PR SCH (12:23)
[2021-09-08] MEDS ORDERED: Metoprolol Tartrate 25 MG TAB PO SCH (12:45)
[2021-09-08] MEDS: Sodium Chloride 0.9% 1,000 ML IV SCH (15:05)
[2021-09-08 17:37] LABS: Bacteria/HPF None Seen HPF (None Seen); Bilirubin Negative (Negative); Blood, Urine Negative (Negative); Clarity Clear (Clear); Glucose, Urine (Dipstick) Normal (Negative); Ketone, Urine Negative (Negative); Leukocyte Negative Leu/uL (Negative); Nitrite Negative (Negative); Protein, Urine (Dipstick) Negative (Neg-Trace); RBC/HPF 0-3 HPF (0-3); Squamous Epithelial 0-3 HPF (0-3); Urobilinogen Normal mg/dL (Less than 2); WBC/HPF 0-3 HPF (0-3)
[2021-09-08 17:40] LABS: Urine Culture Reflex No No
[2021-09-08] MEDS: Atorvastatin Calcium 40 MG TAB PO SCH (21:06)
[2021-09-08] MEDS ORDERED: traMADol HCl 50 MG TAB PO SCH (21:30)
[2021-09-09] MEDS: Sodium Chloride 0.9% 1,000 ML IV SCH ×4 (00:01→07:12)
[2021-09-09 06:26] LABS: #Eosinphils 0.3 thou/uL (0.0-0.7); #Lymphocytes 0.4 thou/uL (1.20-3.40); #Monocytes 0.5 thou/uL (0.11-0.59); #Neutrophils 3.6 thou/uL (1.40-6.50); %Basophils 0.4 % (0.0-1.0); %Eosinophils 6.2 % (0.0-10.0); %Lymphocytes 8.5 % (21.0-51.0); %Monocytes 9.8 % (0.0-10.0); Hemoglobin 10.9 g/dL (14.0-18.0); Mean Corpuscular HGB CONC 32.4 g/dL (32.0-36.0); Mean Corpuscular Hemoglobin 30.2 pg (27.0-31.0); Mean Corpuscular Volume 93.2 fL (78.0-98.0); Mean Platelet Volume 7.8 fL (7.4-10.4); Platelet Count 115 thou/uL (130-400); RBC Distribution Width 15.6 % (11.5-14.5); Red Blood Cell (RBC) Count 3.62 mill/uL (4.70-6.10); White Blood Cell (WBC) Count 4.7 thou/uL (4.8-10.8)
[2021-09-09 06:43] LABS: Anion Gap 7 mmol/L (10-20); BUN (Urea Nitrogen) 17 mg/dL (8.4-25.7); Calc. Creatinine Clearance 64 mL/min (70-130); Calcium 8.7 mg/dL (7.8-10.44); Carbon Dioxide 28 mmol/L (23-31); Chloride 109 mmol/L (98-107); Glucose 87 mg/dL (80-115); Potassium 4.2 mmol/L (3.5-5.1); Sodium 140 mmol/L (136-145)
[2021-09-09 08:15] VITALS: TEMP 97.8
[2021-09-09] MEDS ORDERED: Metoprolol Tartrate 25 MG TAB PO SCH (09:00)
[2021-09-09] MEDS ORDERED: Aspirin 81 mg Enteric Coated Tablet PO SCH (09:00)
[2021-09-09] MEDS: Clopidogrel Bisulfate 75 MG TAB PO SCH (09:33)
[2021-09-09] MEDS: Enoxaparin Sodium 40 MG/0.4 ML SYRINGE SC SCH (09:34)
[2021-09-09 11:50] VITALS: BP 162/86
== END 2021-09-09 16:35 | disposition home or self-care (01) | DRG 91 ==
LOC: ERS 13:59 → NEURO 17:04
PROVIDERS: ADMIT Internal Medicine; ATTEND Internal Medicine
DX: R47.81 Slurred speech (principal); G92.8 Other toxic encephalopathy; N17.9 Acute kidney failure, unspecified; J44.1 Chronic obstructive pulmonary disease with (acute) exacerbation; J96.10 Chronic respiratory failure, unspecified whether with hypoxia or hypercapnia; R13.12 Dysphagia, oropharyngeal phase; R29.810 Facial weakness; Z20.822 Contact with and (suspected) exposure to COVID-19; E78.5 Hyperlipidemia, unspecified; I10 Essential (primary) hypertension; F41.9 Anxiety disorder, unspecified; F31.9 Bipolar disorder, unspecified; F17.210 Nicotine dependence, cigarettes, uncomplicated; D64.9 Anemia, unspecified; R00.1 Bradycardia, unspecified; T43.595A Adverse effect of other antipsychotics and neuroleptics, initial encounter; Z91.14 Patient's other noncompliance with medication regimen; Z79.82 Long term (current) use of aspirin; Z79.899 Other long term (current) drug therapy; Z79.51 Long term (current) use of inhaled steroids
CPT/HCPCS: 36415; 70450; 70551; 71045; 80048; 80053; 80061; 80178; 81001; 84484; 85025; 85610; 85730; 90471; 90686; 93005; 93306; 93880; 94760; G0008; J1650; J7050; U0003; U0005

== ENCOUNTER 2021-10-04 13:16 | Inpatient (IN) | payer MEDICARE ==
[2021-10-04 14:03] LABS: #Eosinphils 0.2 thou/uL (0.0-0.7); #Lymphocytes 0.3 thou/uL (1.20-3.40); #Monocytes 0.4 thou/uL (0.11-0.59); #Neutrophils 6.2 thou/uL (1.40-6.50); %Basophils 0.2 % (0.0-1.0); %Eosinophils 2.4 % (0.0-10.0); %Lymphocytes 4.1 % (21.0-51.0); %Monocytes 5.3 % (0.0-10.0); Mean Corpuscular HGB CONC 32.4 g/dL (32.0-36.0); Mean Corpuscular Hemoglobin 31.9 pg (27.0-31.0); Mean Corpuscular Volume 98.7 fL (78.0-98.0); Mean Platelet Volume 7.4 fL (7.4-10.4); Platelet Count 146 thou/uL (130-400); RBC Distribution Width 15.3 % (11.5-14.5); Red Blood Cell (RBC) Count 4.08 mill/uL (4.70-6.10)
[2021-10-04] MEDS ORDERED: PROVENTIL INHALER 6.7 G (200 INHALATIONS) ONE (14:11)
[2021-10-04] MEDS ORDERED: Magnesium 2 GM/50 ML BAG (IN WATER) ONE (14:11)
[2021-10-04] MEDS ORDERED: methylPREDNISolone Sod Succ/PF 125 MG/2 ML VIAL ONE ×2 (14:11→14:26)
[2021-10-04 14:27] LABS: ALT (SGPT) 11 U/L (8-55); AST (SGOT) 11 U/L (5-34); Albumin 4.1 g/dL (3.4-4.8); Alkaline Phosphatase 125 U/L (40-110); Anion Gap 11 mmol/L (10-20); BUN (Urea Nitrogen) 20 mg/dL (8.4-25.7); Bilirubin, Total 0.6 mg/dL (0.2-1.2); Calc. Creatinine Clearance 0 mL/min (70-130); Calcium 9.2 mg/dL (7.8-10.44); Carbon Dioxide 29 mmol/L (23-31); Chloride 102 mmol/L (98-107); Globulin 2.5 g/dL (2.4-3.5); Glucose 159 mg/dL (80-115); Magnesium 2.1 mg/dL (1.6-2.6); Potassium 4.1 mmol/L (3.5-5.1); Protein, Total 6.6 g/dL (5.8-8.1); Sodium 138 mmol/L (136-145)
[2021-10-04] MEDS ORDERED: Albuterol 200 PUFF (6.7GM INHALER) ONE (14:40)
[2021-10-04 17:03] LABS: SARS-CoV-2 NAA Rapid Test Not Detected (NotDetected)
[2021-10-04 20:45] LABS: Troponin I Less than 0.010 ng/mL (< 0.028)
[2021-10-04] MEDS ORDERED: Albuterol Sulfate 2.5 mg/3 ml Neb NEB PRN (20:54)
[2021-10-04] MEDS ORDERED: Acetaminophen 650 MG Suppository PR PRN (20:58)
[2021-10-04] MEDS ORDERED: Ondansetron ODT 4 MG TAB SL PRN (21:00)
[2021-10-04] MEDS ORDERED: Acetaminophen 325 MG TAB PO PRN (21:00)
[2021-10-04] MEDS ORDERED: Ondansetron PF 4 MG/2 ML Vial IVP PRN (21:00)
[2021-10-04 21:26] VITALS: BMI 20.8
[2021-10-04] MEDS ORDERED: Azithromycin 500 MG in Sodium Chloride 0.9% 250 ML 250 ML IVPB SCH (22:00)
[2021-10-04] MEDS ORDERED: Sodium Chloride 0.9% 500 ML IV SCH ×2 (22:45→23:00)
[2021-10-04] MEDS ORDERED: hydrALAZINE 20 MG/ML VIAL SLOW IVP PRN (23:09)
[2021-10-04 23:42] LABS: Troponin I Less than 0.010 ng/mL (< 0.028)
[2021-10-05 02:09] LABS: Bacteria/HPF None Seen HPF (None Seen); Bilirubin Negative (Negative); Blood, Urine Negative (Negative); Clarity Clear (Clear); Glucose, Urine (Dipstick) 150 mg/dL (Negative); Ketone, Urine Negative (Negative); Leukocyte Negative Leu/uL (Negative); Nitrite Negative (Negative); Protein, Urine (Dipstick) Negative (Neg-Trace); RBC/HPF 0-3 HPF (0-3); Specific Gravity, Urine 1.024 (1.002-1.036); Squamous Epithelial None Seen HPF (0-3); Urobilinogen Normal mg/dL (Less than 2); WBC/HPF 0-3 HPF (0-3); pH, Urine 6.5 (5.0-9.0)
[2021-10-05 04:23] LABS: #Lymphocytes 0.2 thou/uL (1.20-3.40); #Monocytes 0.2 thou/uL (0.11-0.59); #Neutrophils 4.9 thou/uL (1.40-6.50); %Lymphocytes 4.1 % (21.0-51.0); %Monocytes 3.3 % (0.0-10.0); %Neutrophils 92.6 % (42.0-75.0); Hemoglobin 12.5 g/dL (14.0-18.0); Mean Corpuscular HGB CONC 32.1 g/dL (32.0-36.0); Mean Corpuscular Hemoglobin 31.6 pg (27.0-31.0); Mean Corpuscular Volume 98.7 fL (78.0-98.0); Mean Platelet Volume 7.5 fL (7.4-10.4); Platelet Count 152 thou/uL (130-400); RBC Distribution Width 15.2 % (11.5-14.5); Red Blood Cell (RBC) Count 3.94 mill/uL (4.70-6.10); White Blood Cell (WBC) Count 5.3 thou/uL (4.8-10.8)
[2021-10-05 04:52] LABS: Anion Gap 13 mmol/L (10-20); BUN (Urea Nitrogen) 21 mg/dL (8.4-25.7); Calc. Creatinine Clearance 48 mL/min (70-130); Calcium 9.2 mg/dL (7.8-10.44); Carbon Dioxide 27 mmol/L (23-31); Chloride 104 mmol/L (98-107); Glucose 123 mg/dL (80-115); Potassium 4.6 mmol/L (3.5-5.1); Sodium 139 mmol/L (136-145)
[2021-10-05] MEDS: Lithium Carbonate 150 MG CAP PO SCH (09:17)
[2021-10-05] MEDS: Simvastatin 10 MG TAB PO SCH (09:17)
[2021-10-05] MEDS: Enoxaparin Sodium 40 MG/0.4 ML SYRINGE SC SCH (09:18)
[2021-10-05] MEDS: methylPREDNISolone Sod Succ 40 MG VIAL IVP SCH (09:18)
[2021-10-05] MEDS: Aspirin 81 mg Enteric Coated Tablet PO SCH (09:18)
[2021-10-05] MEDS: Clopidogrel Bisulfate 75 MG TAB PO SCH (09:18)
[2021-10-05] MEDS: Metoprolol Tartrate 25 MG TAB PO SCH (09:18)
[2021-10-05] MEDS: Mometasone 200 MCG/Formoterol 5 MCG 120 PUFF INHALER INH SCH (19:22)
[2021-10-05] MEDS ORDERED: Azithromycin 250 MG TAB PO SCH (21:00)
[2021-10-06 07:27] VITALS: BP 165/81; TEMP 98.4
[2021-10-06] MEDS: Mometasone 200 MCG/Formoterol 5 MCG 120 PUFF INHALER INH SCH (07:30)
[2021-10-06 07:48] LABS: Anion Gap 13 mmol/L (10-20); BUN (Urea Nitrogen) 24 mg/dL (8.4-25.7); Calc. Creatinine Clearance 47 mL/min (70-130); Calcium 9.3 mg/dL (7.8-10.44); Carbon Dioxide 26 mmol/L (23-31); Chloride 104 mmol/L (98-107); Glucose 101 mg/dL (80-115); Potassium 4.3 mmol/L (3.5-5.1); Sodium 139 mmol/L (136-145)
[2021-10-06] MEDS: Aspirin 81 mg Enteric Coated Tablet PO SCH (08:39)
[2021-10-06] MEDS: Lithium Carbonate 150 MG CAP PO SCH (08:39)
[2021-10-06] MEDS: Enoxaparin Sodium 40 MG/0.4 ML SYRINGE SC SCH (08:39)
[2021-10-06] MEDS: Metoprolol Tartrate 25 MG TAB PO SCH (08:39)
[2021-10-06] MEDS: Simvastatin 10 MG TAB PO SCH (08:39)
[2021-10-06] MEDS: Clopidogrel Bisulfate 75 MG TAB PO SCH (08:39)
[2021-10-06] MEDS: methylPREDNISolone Sod Succ 40 MG VIAL IVP SCH (08:40)
== END 2021-10-06 10:37 | disposition home or self-care (01) | DRG 189 ==
LOC: ERS 13:16 → 2NO 19:23 → OBSVTOIN 10-05 12:25
PROVIDERS: ADMIT Internal Medicine; ATTEND Family Medicine
DX: J96.21 Acute and chronic respiratory failure with hypoxia (principal); J44.1 Chronic obstructive pulmonary disease with (acute) exacerbation; N17.9 Acute kidney failure, unspecified; Z20.822 Contact with and (suspected) exposure to COVID-19; I13.0 Hypertensive heart and chronic kidney disease with heart failure and stage 1 through stage 4 chronic kidney disease, or unspecified chronic kidney disease; I50.32 Chronic diastolic (congestive) heart failure; F20.9 Schizophrenia, unspecified; E78.5 Hyperlipidemia, unspecified; F41.9 Anxiety disorder, unspecified; F31.9 Bipolar disorder, unspecified; N18.9 Chronic kidney disease, unspecified; D63.1 Anemia in chronic kidney disease; Z99.81 Dependence on supplemental oxygen; Z79.51 Long term (current) use of inhaled steroids; Z79.82 Long term (current) use of aspirin; Z79.01 Long term (current) use of anticoagulants; Z87.891 Personal history of nicotine dependence; Z98.890 Other specified postprocedural states; Z91.14 Patient's other noncompliance with medication regimen; Z79.899 Other long term (current) drug therapy
CPT/HCPCS: 36415; 71045; 71275; 80048; 80053; 80178; 81001; 83605; 83735; 83880; 84484; 85025; 85379; 93005; 94640; 96365; 96372; 96375; G0378; J0456; J1650; J2920; J2930; J3475; J7030; J7050; J7620; Q9967; U0002